=== PATIENT | male | born 1940 | race Caucasian/White ===

== ENCOUNTER → 2016-10-01 | Outpatient (CLI) | payer MEDICARE ==
[~2016-10-01] MED LIST: ATEN-60 PO; GABA300C PO; PRAS10TA PO; SUCR1TAB38 PO
[2016-10-01 16:28] LABS: Urine Bilirubin Negative (Negative); Urine Blood Negative /uL (Negative); Urine Color Yellow (Yellow); Urine Glucose Normal (Normal); Urine Ketone Negative (Negative); Urine Nitrite Negative (Negative); Urine Urobilinogen Normal (Negative); Urine pH 5.5 (5.0-8.0)
[2016-10-01 16:45] LABS: Basophils # (auto) 0 uL; Basophils % (auto) 0.4 % (0.0-2.0); Eosinophils # (auto) 0.1 uL; Hematocrit 49.2 % (41.0-53.0); Hemoglobin 16.1 g/dL (13.5-17.5); Lymphocytes # (auto) 0.8 uL; Lymphocytes % (auto) 21.3 % (10.0-50.0); Mean Corpuscular Hemoglobin 30.3 pg (28.0-32.0); Mean Corpuscular Hgb Conc. 32.7 g/dL (32.0-36.0); Mean Corpuscular Volume 92.7 fL (80.0-100.0); Mean Platelet Volume 8.1 fL (7.4-10.4); Monocytes # (auto) 0.4 uL; Monocytes % (auto) 9.8 % (0.0-12.0); Neutrophils # (auto) 2.4 uL; Neutrophils % (auto) 65.5 % (37.0-80.0); Platelet Count (auto) 218 10^3/uL (140-450); Red Cell Distribution Width 15.4 % (11.6-16.0); White Blood Cell 3.6 10^3/uL (4.4-10.8)
[2016-10-01 18:01] LABS: Albumin 3.8 g/dL (3.4-5.0); BUN/Creatinine Ratio 16.7; Bilirubin, Total 1.6 mg/dL (0.2-1.0); Potassium 4.7 mmol/L (3.5-5.1); Total Protein 6.8 g/dL (6.4-8.2)
[2016-10-01 18:50] LABS: Bilirubin, Direct 0.3 mg/dL (0-0.2)
== END | disposition home or self-care (01) ==
LOC: LAB 08:29
PROVIDERS: ATTEND Internal Medicine Cardiovascular Disease
DX: I10 Essential (primary) hypertension (principal); E78.00 Pure hypercholesterolemia, unspecified; K74.1 Hepatic sclerosis; E11.9 Type 2 diabetes mellitus without complications; R97.20 Elevated prostate specific antigen [PSA]; R53.81 Other malaise; E03.9 Hypothyroidism, unspecified; D64.9 Anemia, unspecified; E55.9 Vitamin D deficiency, unspecified; N39.0 Urinary tract infection, site not specified
CPT/HCPCS: 36415; 80048; 80061; 80076; 81003; 82306; 83036; 84403; 84443; 85025; 85049

== ENCOUNTER → 2018-02-17 | Outpatient (CLI) | payer MEDICARE ==
[2018-02-17 12:03] LABS: Urine Blood Negative /uL (Negative); Urine Specific Gravity 1.024 (1.001-1.035)
[2018-02-17 12:07] LABS: Basophils # (auto) 0 uL; Basophils % (auto) 0.4 % (0.0-2.0); Eosinophils # (auto) 0.1 uL; Eosinophils % (auto) 1.6 % (0.0-7.0); Hematocrit 43.9 % (41.0-53.0); Lymphocytes % (auto) 25.1 % (10.0-50.0); Mean Corpuscular Hemoglobin 31.5 pg (28.0-32.0); Mean Corpuscular Hgb Conc. 34.3 g/dL (32.0-36.0); Mean Corpuscular Volume 91.8 fL (80.0-100.0); Monocytes # (auto) 0.5 uL; Monocytes % (auto) 11.4 % (0.0-12.0); Neutrophils # (auto) 2.5 uL; Neutrophils % (auto) 61.5 % (37.0-80.0); Nucleated Red Blood Cells % 0.1 %; Platelet Count (auto) 204 10^3/uL (140-450); Red Blood Cells 4.78 10^6/uL (4.5-5.90); White Blood Cell 4.1 10^3/uL (4.4-10.8)
[2018-02-17 12:21] LABS: Albumin 3.8 g/dL (3.4-5.0); BUN/Creatinine Ratio 19.6; Bilirubin, Total 1.8 mg/dL (0.2-1.0); Calcium 9.6 mg/dL (8.5-10.1); Potassium 4.2 mmol/L (3.5-5.1)
[2018-02-17 12:28] LABS: Free T4 (Free Thyroxine) 1.21 ng/dL (0.89-1.76); Prostate Specific Antigen 1.03 ng/mL (0.0-4.0)
== END | disposition home or self-care (01) ==
LOC: LAB 08:28
PROVIDERS: ATTEND Internal Medicine
DX: Z00.01 Encounter for general adult medical examination with abnormal findings (principal); E03.9 Hypothyroidism, unspecified; E55.9 Vitamin D deficiency, unspecified; C61 Malignant neoplasm of prostate; E11.9 Type 2 diabetes mellitus without complications; D51.9 Vitamin B12 deficiency anemia, unspecified; N39.0 Urinary tract infection, site not specified
CPT/HCPCS: 36415; 80053; 80061; 81003; 82306; 82607; 83036; 84153; 84403; 84439; 84443; 85025

== ENCOUNTER → 2018-03-02 | Outpatient (CLI) | payer MEDICARE | END | disposition home or self-care (01) | LOC: Rad HDHVI 10:06 | PROVIDERS: ATTEND Internal Medicine Cardiovascular Disease | DX: I35.1 Nonrheumatic aortic (valve) insufficiency (principal); I25.10 Atherosclerotic heart disease of native coronary artery without angina pectoris; E78.5 Hyperlipidemia, unspecified; G62.9 Polyneuropathy, unspecified; E11.9 Type 2 diabetes mellitus without complications; E03.9 Hypothyroidism, unspecified; Z85.46 Personal history of malignant neoplasm of prostate | CPT/HCPCS: 93306 ==

== ENCOUNTER 2018-09-10 10:21 | Emergency (ER) | payer MEDICARE ==
[~2018-09-10] VITALS: Ht 177.8 cm; Wt 74.8 kg
[2018-09-10 10:41] VITALS: BP 109/69
[2018-09-10] MEDS: methylPREDNISolone SOD SUCC 125 MG/2 ML VL IM ONE (13:10)
[2018-09-10] MEDS: cefTRIAXone SOD 1,000 MG VL IM ONE (13:10)
== END 2018-09-10 13:43 | disposition home or self-care (01) ==
LOC: ER 10:26
CPT/HCPCS: 96372 ×2; 99283; J0696 ×2; J2930

== ENCOUNTER → 2018-11-03 | Outpatient (CLI) | payer MEDICARE ==
[~2018-11-03] MED LIST changes: +IOHEXOL 350 MG/ML 100ML IJ ONE
[2018-11-03 08:45] VITALS: BP_SYST 126; BP_DIAS 83; BP_DIAS 93
--- NOTE | 2018-11-03 08:45 | NUR ---
CHF PT TO CHF CLINIC FOR CT AND IV CONTRAST O DISTRESS V/S STABLE CREATINE DRAWN
--- NOTE | 2018-11-03 09:00 | NUR ---
IV insertion IV access obtained, via clean sterile technique by inserting 22 gauge catheter at after attempt(s). IV secured properly. No trauma to site. Patient tolerated procedure well.
[2018-11-03 09:29] VITALS: BP 134/78
--- NOTE | 2018-11-03 09:29 | NUR ---
IV removal IV DC'd with sterile technique, catheter fully intact. Pressure dressing applied to site. Patient tolerated procedure well. Discharged with aftercare instructions per MD. NOTE:
--- NOTE | 2018-11-03 09:30 | NUR ---
Discharge Instructions See e-MAR for any mediations given with this visit. Patient education given on disease process. Patient verbalized understanding. Previous labs reviewed. Patient discharged in stable condition with after care instructions and follow up appointment.
== END | disposition home or self-care (01) ==
LOC: Rad HDHVI 08:38
PROVIDERS: ATTEND Internal Medicine Cardiovascular Disease
DX: R10.9 Unspecified abdominal pain (principal); R07.89 Other chest pain; R94.4 Abnormal results of kidney function studies
CPT/HCPCS: 36415; 71260; 74177; 82565; Q9967

== ENCOUNTER → 2019-02-15 | Outpatient (CLI) | payer MEDICARE ==
[~2019-02-15] MED LIST changes: -IOHEXOL 350 MG/ML 100ML IJ ONE
== END | disposition home or self-care (01) ==
LOC: CHF HDHVI 14:58
PROVIDERS: ATTEND Internal Medicine Cardiovascular Disease
DX: I08.3 Combined rheumatic disorders of mitral, aortic and tricuspid valves (principal); I25.10 Atherosclerotic heart disease of native coronary artery without angina pectoris; Z95.820 Peripheral vascular angioplasty status with implants and grafts
CPT/HCPCS: 93306

== ENCOUNTER 2019-03-05 20:04 | Inpatient (IN) | payer MEDICARE ==
[~2019-03-05] VITALS: Ht 180.3 cm; Wt 97.3 kg
[2019-03-05 21:09] LABS: Hematocrit 24.8 % (41.0-53.0); Hemoglobin 7.7 g/dL (13.5-17.5); Mean Corpuscular Hemoglobin 25.7 pg (28.0-32.0); Mean Corpuscular Hgb Conc. 31.2 g/dL (32.0-36.0); Mean Corpuscular Volume 82.4 fL (80.0-100.0); Red Cell Distribution Width 15.8 % (11.8-14.3); White Blood Cell 24.2 10^3/uL (4.4-10.8)
[2019-03-05 21:19] LABS: Band Neutrophils % (manual) 0; Basophils % (manual) 0 (0.0-2.0); Blast Cells 0; Eosinophils % (manual) 0 (0-7); Metamyelocytes % 0; Myelocytes % 0; Promyelocytes % 0; Reactive Lymphocytes 0
[2019-03-05 21:44] LABS: Calcium 9.1 mg/dL (8.5-10.1); Potassium 4.5 mmol/L (3.5-5.1)
[2019-03-05 21:48] LABS: Bilirubin, Total 0.6 mg/dL (0.2-1.0); Total Protein 5.8 g/dL (6.4-8.2)
[2019-03-05 21:49] LABS: BUN/Creatinine Ratio 18.5
[2019-03-05 22:09] LABS: Lymphocytes % (manual) 3 (10.0-50.0); Monocytes % (manual) 7 (0-12); Platelet Count (auto) 460 10^3/uL (140-450)
[2019-03-05] MEDS ORDERED: VANCOMYCIN 1GM/250ML 250 ML IV ONE (22:30)
[2019-03-05] MEDS ORDERED: SODIUM CHLORIDE 0.9% 1,000 ML IV ONE (22:30)
[2019-03-05] MEDS ORDERED: PIPERACILLIN-TAZOB 3.375GM 100 ML IV ONE (22:30)
[2019-03-05 22:39] LABS: Lactic Acid w/Reflex 8.6 mmol/L (0.4-2.0)
[2019-03-06] VITALS (11 sets, daily range): BP systolic 93–126; BP diastolic 61–81
[2019-03-06 00:29] LABS: Lactic Acid w/Reflex 6.9 mmol/L (0.4-2.0)
[2019-03-06 02:22] LABS: Urine Bacteria NONE SEEN /hpf (None Seen); Urine Blood 1+ /uL (Negative); Urine Specific Gravity 1.016 (1.001-1.035); Urine WBC 2 /hpf (0 - 3)
[2019-03-06] MEDS ORDERED: ONDANSETRON HCL 4 MG/2 ML VIAL IV PRN (02:45)
[2019-03-06] MEDS ORDERED: VANCOMYCIN PER PHARMACY 0 MG IV SCH (02:45)
[2019-03-06] MEDS ORDERED: DOCUSATE SOD 100 MG CAP PO PRN (02:45)
[2019-03-06] MEDS ORDERED: ACETAMINOPHEN 500 MG TAB PO PRN (02:45)
[2019-03-06] MEDS ORDERED: TEMAZEPAM 15 MG CAP PO PRN (02:45)
--- NOTE | 2019-03-06 03:35 | NUR ---
Telemetry admit from ER B[facility]ANTOMI admitted to Telemetry unit. Patient oriented to Alex Aiken, primary RN, unit, room, bed, and unit policies regarding patient care and visiting hours. Patient now on continuous telemetry monitoring, tele box # [id number] and telemetry reading on arrival to unit is [facility]. Patient's vs taken and recorded, weighed by bedscale and encouraged to call if they need something, call light within reach. POC reviewed. All questions and concerns addressed, patient verbalized understanding. Side rails up x2, bed in lowest locked position, non skid socks/bed alarm on. Continue care. Note:
[2019-03-06] MEDS: cefTRIAXone 1GM/50ML D5W 50 ML IV SCH (04:12)
[2019-03-06] MEDS ORDERED: MED20T PO (05:03)
[2019-03-06] MEDS ORDERED: TAM04C PO (05:03)
[2019-03-06] MEDS ORDERED: ATOR20TA PO (05:03)
[2019-03-06] MEDS: SUCRALFATE 1 GM TAB PO SCH ×4 (06:05→21:47)
--- NOTE | 2019-03-06 07:40 | NUR ---
OPENING SHIFT NOTE PATIENT IN BED AWAKE AND ALERT, AND ABLE TO FOLLOW COMMANDS. SHOWING NO S/.S OF DISTRESS OR SOB. PATIENT VERBALIZED UNDERSTANDING DAYS POC. BED IS IN LOWEST LOCKED POSITION CALL LIGHT WITHIN REACH. WILL CONTINUE TO MONITOR
[2019-03-06] MEDS: PANTOPRAZOLE 40 MG TAB PO SCH (08:56)
[2019-03-06] MEDS: GABAPENTIN 300 MG CAP PO SCH ×2 (08:56→21:47)
[2019-03-06] MEDS: ATENOLOL 25 MG TAB PO SCH (08:57)
[2019-03-06 09:25] LABS: Basophils # (auto) 0 uL; Eosinophils # (auto) 0 uL; Lymphocytes # (auto) 1.8 uL; Lymphocytes % (auto) 11.7 % (10.0-50.0); White Blood Cell 15.7 10^3/uL (4.4-10.8)
[2019-03-06 09:30] LABS: Basophils % (auto) 0.2 % (0.0-2.0); Hematocrit 19.6 % (41.0-53.0); Mean Corpuscular Hgb Conc. 32.5 g/dL (32.0-36.0); Monocytes # (auto) 1.4 uL; Monocytes % (auto) 9.2 % (0.0-12.0); Neutrophils # (auto) 12.4 uL; Neutrophils % (auto) 78.9 % (37.0-80.0); Platelet Count (auto) 429 10^3/uL (140-450); Red Blood Cells 2.45 10^6/uL (4.5-5.90); Red Cell Distribution Width 15.7 % (11.8-14.3)
[2019-03-06 09:36] LABS: Hemoglobin 6.4 g/dL (13.5-17.5)
[2019-03-06 09:43] LABS: BUN/Creatinine Ratio 25.8; Calcium 8.4 mg/dL (8.5-10.1); Potassium 4.1 mmol/L (3.5-5.1)
--- NOTE | 2019-03-06 10:26 | NUR ---
CRITICAL LAB VALUE REPORTED BY [facility], DR MCKINNEY MADE AWARE. GAVE ORDERS FOR 1 UNIT RBC. PATIENT REFUSES TO SIGN CONSENT AT THIS TIME. PATIENT EDUCATED ON RISKS AND BENEFITS. WILL CONTINUE TO MONITOR
--- NOTE | 2019-03-06 11:00 | NUR ---
PATIENT SIGNED CONSENT PATIENTS FAMILY AT BEDSIDE. AND SIGNED CONSENT TO RECEIVE BLOOD TRANSFUSION
--- NOTE | 2019-03-06 11:56 | NUR ---
MD AT BEDSIDE PATIENT AWAKE AND ALERT X4 FAMILY AT BEDSIDE. DR MCKINNEY DISCUSSED POC. WILL CARRY OUT ORDERS DIRECTED
--- NOTE | 2019-03-06 13:40 | NUR ---
BLOOD TRANSFUSION STARTED PATIENT IN BED ALERT AND ORIENTED, BASE LINE VITALS SIGNS TAKEN. PATIENT DENIES PAIN SOB OR ANY DISTRESS. WILL CONTINUE TO MONITOR
--- NOTE | 2019-03-06 15:56 | NUR ---
AT BEDSIDE DR IZQUIERDO AT BEDSIDE, PATIENT ALERT AND ORIENTED. TIMBO REQUESTED PATIENTS CARE BE TRANSFERRED OVER TO HIM AND FOR CBC PANEL TO BE COMPLETED AFTER COMPLETION OF TRANSFUSION. WILL CARRY OUT ORDERS
--- NOTE | 2019-03-06 16:25 | NUR ---
TRANSFUSION COMPLETE TRANSFUSION COMPLETED. PATIENT TOLERATED WELL. DENIES PAIN, SOB AND ANY DISTRESS. LUNG SOUNDS CLEAR. PATIENT VERBALIZED FEELING MORE AWAKE. VITAL SIGNS ARE WNL. WILL CONTINUE TO MONITOR
[2019-03-06] MEDS: TAMSULOSIN HYDROCHLORIDE 0.4 MG CAP PO SCH (17:28)
[2019-03-06 17:38] LABS: Basophils # (auto) 0 uL; Basophils % (auto) 0.1 % (0.0-2.0); Eosinophils # (auto) 0 uL; Hematocrit 23.9 % (41.0-53.0); Hemoglobin 7.5 g/dL (13.5-17.5); Lymphocytes # (auto) 2.2 uL; Lymphocytes % (auto) 14.1 % (10.0-50.0); Mean Corpuscular Hemoglobin 25.9 pg (28.0-32.0); Mean Corpuscular Hgb Conc. 31.5 g/dL (32.0-36.0); Mean Corpuscular Volume 82.3 fL (80.0-100.0); Monocytes # (auto) 1.5 uL; Monocytes % (auto) 9.7 % (0.0-12.0); Neutrophils % (auto) 76.1 % (37.0-80.0); Nucleated Red Blood Cells % 0.1 %; Platelet Count (auto) 416 10^3/uL (140-450); Red Cell Distribution Width 15.8 % (11.8-14.3); White Blood Cell 15.8 10^3/uL (4.4-10.8)
--- NOTE | 2019-03-06 17:39 | NUR ---
STOOL OCCULT BLOOD SAMPLE SENT
--- NOTE | 2019-03-06 18:50 | NUR ---
END OF SHIFT NOTE PATIENT IS IN BED WITH EYES CLOSED COMFORTABLY. SHOWING NO S/S OF DISTRESS. BED IS IN LOWEST LOCKED POSITION CALL LIGHT WITH IN REACH WILL ENDORSE CARE TO NOC RN
--- NOTE | 2019-03-06 19:10 | NUR ---
Opening Shift Note Received report from Siobhan LARSON. Assumed care of patient, awake and alert. No S/S of distress/SOB or pain. Instructed on POC and to call for assist PRN. Bed in lowest position, side rails up x2, bed alarm on, call light and belongings in reach. Will continue to monitor for changes Q1hr and PRN.
[2019-03-06] MEDS: ATORVASTATIN 20 MG TAB PO SCH (21:47)
[2019-03-06] MEDS: VANCOMYCIN 1,250 MG in D5W 5% 250 ML IV SCH (21:48)
[2019-03-07] VITALS (11 sets, daily range): BP systolic 102–123; BP diastolic 51–79
[2019-03-07] MEDS: cefTRIAXone 1GM/50ML D5W 50 ML IV SCH (04:28)
[2019-03-07 05:55] LABS: BUN/Creatinine Ratio 34.9; Calcium 8.2 mg/dL (8.5-10.1); Potassium 3.9 mmol/L (3.5-5.1)
[2019-03-07 06:32] LABS: Basophils # (auto) 0 uL; Basophils % (auto) 0.1 % (0.0-2.0); Eosinophils # (auto) 0 uL; Nucleated Red Blood Cells % 0.2 %; Red Cell Distribution Width 15.5 % (11.8-14.3)
[2019-03-07 06:35] LABS: Eosinophils % (auto) 0.2 % (0.0-7.0); Hematocrit 19.8 % (41.0-53.0); Lymphocytes # (auto) 1.6 uL; Lymphocytes % (auto) 13.7 % (10.0-50.0); Mean Corpuscular Hgb Conc. 33.6 g/dL (32.0-36.0); Mean Corpuscular Volume 80.2 fL (80.0-100.0); Monocytes # (auto) 1.5 uL; Monocytes % (auto) 12.5 % (0.0-12.0); Neutrophils # (auto) 8.6 uL; Neutrophils % (auto) 73.5 % (37.0-80.0); Platelet Count (auto) 369 10^3/uL (140-450); Red Blood Cells 2.46 10^6/uL (4.5-5.90); White Blood Cell 11.7 10^3/uL (4.4-10.8)
[2019-03-07 06:48] LABS: Hemoglobin 6.6 g/dL (13.5-17.5)
[2019-03-07] MEDS: SUCRALFATE 1 GM TAB PO SCH ×4 (06:49→22:10)
--- NOTE | 2019-03-07 07:03 | NUR ---
Received call from Violeta in laboratory re: critical Hgb level of 6.6. Dr. Dunn made aware, awaiting for call back. Patient stable at this time, vitals within normal. Endorsed care to Siobhan LARSON.
--- NOTE | 2019-03-07 07:30 | NUR ---
OPENING SHIFT NOTE PATIENT IN BED AWAKE WATCHING TV AT THIS TIME. DENIES PAIN SOB AND ANY DISTRESS. PATIENT VERBALIZED UNDERSTANDING OF DAYS POC. BED IS IN LOWEST LOCKED POSITION CALL LIGHT IS WITH IN REACH. WILL CONTINUE TO MONITOR
[2019-03-07] MEDS: GABAPENTIN 300 MG CAP PO SCH ×2 (09:27→22:10)
[2019-03-07] MEDS: ATENOLOL 25 MG TAB PO SCH (09:28)
[2019-03-07] MEDS: PANTOPRAZOLE 40 MG TAB PO SCH ×2 (09:28→22:10)
[2019-03-07 12:46] LABS: INR 1.16 (0.9-1.15)
--- NOTE | 2019-03-07 13:20 | NUR ---
IV removal AND IV INSERTION IV DC'd with clean sterile technique, catheter fully intact. Pressure dressing applied to site. Patient tolerated well. IV INSERTED TO LEFT HAND 20 G AFTER ONE ATTEMPT. PATIENT TOLERATED WELL. WILL CONTINUE TO MONITOR
--- NOTE | 2019-03-07 14:24 | NUR ---
Spoke with pt's nurse regarding appropriateness for therapy. Pt's Hgb 6.6, will hold therapy today and re-check tomorrow. Addendum: 03/07/19 at 1425 by JAKY NIÑO PT PT Amended: Links added.
--- NOTE | 2019-03-07 14:27 | NUR ---
BLOOD TRANSFUSION BEGUN PATIENT IN BED ALERT AND ORIENTED. BASE LINE VITALS ARE STABLE. DENIES PAIN, SOB OR ANY DISTRESS. WILL CONTINUE TO MONITOR
[2019-03-07] MEDS: TAMSULOSIN HYDROCHLORIDE 0.4 MG CAP PO SCH (17:55)
--- NOTE | 2019-03-07 17:57 | NUR ---
TRANSFUSION COMPLETE TRANSFUSION COMPLETE, PATIENT ALERT AND ORIENTED, DENIES PAIN SOB OR DISTRESS. VITAL SIGNS STABLE. WILL CONTINUE TO MONITOR
--- NOTE | 2019-03-07 19:06 | NUR ---
END OF SHIFT NOTE PATIENT IN BED WITH EYES CLOSED COMFORTABLY. BED IS IN LOWEST LOCKED POSITION CALL LIGHT WITHIN REACH. ENDORSED CARE TO NOC RN
--- NOTE | 2019-03-07 19:15 | NUR ---
Opening Shift Note Received report from Siobhan LARSON. Assumed care of patient, awake and alert. No S/S of distress/SOB or pain. Instructed on POC and to call for assist PRN. Fall precaution measures in place, will continue to monitor for changes Q1hr and PRN.
[2019-03-07 19:31] LABS: Basophils # (auto) 0 uL; Eosinophils # (auto) 0 uL; Hematocrit 23.9 % (41.0-53.0); Hemoglobin 7.7 g/dL (13.5-17.5); Mean Corpuscular Hgb Conc. 32.3 g/dL (32.0-36.0); Monocytes # (auto) 1.8 uL; White Blood Cell 11.4 10^3/uL (4.4-10.8)
[2019-03-07 19:33] LABS: Basophils % (auto) 0.2 % (0.0-2.0); Eosinophils % (auto) 0.1 % (0.0-7.0); Lymphocytes # (auto) 1.6 uL; Lymphocytes % (auto) 13.6 % (10.0-50.0); Mean Corpuscular Hemoglobin 26.3 pg (28.0-32.0); Mean Corpuscular Volume 81.5 fL (80.0-100.0); Monocytes % (auto) 15.6 % (0.0-12.0); Neutrophils % (auto) 70.5 % (37.0-80.0); Nucleated Red Blood Cells % 0.5 %; Platelet Count (auto) 373 10^3/uL (140-450); Red Blood Cells 2.93 10^6/uL (4.5-5.90)
[2019-03-07] MEDS: ATORVASTATIN 20 MG TAB PO SCH (22:09)
[2019-03-07] MEDS: VANCOMYCIN 1,250 MG in D5W 5% 250 ML IV SCH (22:10)
[2019-03-08] VITALS (10 sets, daily range): BP systolic 106–136; BP diastolic 66–83
--- NOTE | 2019-03-08 03:21 | NUR ---
Hematocrit level is 23.9, 3rd unit of PRBC started per MD order. Vitals within normal, will continue to monitor.
--- NOTE | 2019-03-08 06:31 | NUR ---
Blood transfusion ended, no reaction noted, vitals stable. Continue monitor.
[2019-03-08] MEDS: SUCRALFATE 1 GM TAB PO SCH ×4 (06:40→21:55)
[2019-03-08] MEDS: cefTRIAXone 1GM/50ML D5W 50 ML IV SCH (06:40)
--- NOTE | 2019-03-08 07:35 | NUR ---
Care endorsed to Sugey LARSON.
--- NOTE | 2019-03-08 07:56 | NUR ---
RECEIVED REPORT AND ASSUME CARE OF PT. A/OX4. DENIED S/S ACUTE DISTRESS. UPDATE PT WITH POC. BED AT LOWEST POSITION. CALL LIGHT AND BELONGINGS WITHIN REACH. WILL CONT TO MONITOR.
[2019-03-08] MEDS ORDERED: LIDOCAINE VISCOUS 2% 15ML UD ONE (08:49)
[2019-03-08] MEDS ORDERED: SODIUM CHLORIDE LOCK 10 ML ONE (08:49)
[2019-03-08] MEDS ORDERED: diphenhdrAMINE HCL 50 MG/1 ML VL ONE (08:50)
--- NOTE | 2019-03-08 11:00 | NUR ---
PT DECLINED P.T. TODAY.
[2019-03-08] MEDS: SODIUM FERR GLUC 62.5MG/5ML 125 MG in SODIUM CHL 0.9% 100 ML IV SCH ×2 (11:09→12:00)
[2019-03-08] MEDS: MIDAZOLAM HCL 5 MG/ML-1ML VIAL ONE ×2 (12:08→12:11)
[2019-03-08] MEDS: fentaNYL CITRATE 100 MCG/2 ML VL ONE ×2 (12:08→12:11)
[2019-03-08] MEDS: PANTOPRAZOLE 40 MG TAB PO SCH ×2 (12:57→21:56)
[2019-03-08] MEDS: GABAPENTIN 300 MG CAP PO SCH ×2 (12:57→21:55)
[2019-03-08] MEDS: ATENOLOL 25 MG TAB PO SCH (12:58)
--- NOTE | 2019-03-08 13:47 | NUR ---
meds given late as pt was npo and off unit for EGD.
[2019-03-08 14:17] LABS: % Iron Saturation 20.5 % (20-55)
[2019-03-08 14:26] LABS: Folate (Folic Acid) 23.15 ng/mL (5.38-24)
[2019-03-08 14:27] LABS: INR 1.24 (0.9-1.15); Partial Thromboplastin Time 31.7 sec (23.64-32.05)
[2019-03-08 14:42] LABS: Basophils # (auto) 0 uL; Basophils % (auto) 0.1 % (0.0-2.0); Eosinophils # (auto) 0 uL; Hematocrit 28.8 % (41.0-53.0); Hemoglobin 9.5 g/dL (13.5-17.5); Lymphocytes # (auto) 0.7 uL; Lymphocytes % (auto) 5.5 % (10.0-50.0); Mean Corpuscular Hemoglobin 27.4 pg (28.0-32.0); Mean Corpuscular Hgb Conc. 32.9 g/dL (32.0-36.0); Mean Corpuscular Volume 83.3 fL (80.0-100.0); Monocytes # (auto) 1.4 uL; Monocytes % (auto) 10.7 % (0.0-12.0); Neutrophils # (auto) 11.2 uL; Neutrophils % (auto) 83.7 % (37.0-80.0); Nucleated Red Blood Cells % 1.3 %; Platelet Count (auto) 396 10^3/uL (140-450); Red Blood Cells 3.45 10^6/uL (4.5-5.90); Red Cell Distribution Width 15.5 % (11.8-14.3); White Blood Cell 13.4 10^3/uL (4.4-10.8)
[2019-03-08] MEDS: TAMSULOSIN HYDROCHLORIDE 0.4 MG CAP PO SCH (18:37)
--- NOTE | 2019-03-08 19:15 | NUR ---
Opening Shift Note Received report from Didian RN. Assumed care of patient, awake and alert. No S/S of distress/SOB or pain. Instructed on POC and to call for assist PRN. Fall precaution measures in place, will continue to monitor for changes Q1hr and PRN.
[2019-03-08] MEDS: ATORVASTATIN 20 MG TAB PO SCH (21:55)
[2019-03-08] MEDS: VANCOMYCIN 1,250 MG in D5W 5% 250 ML IV SCH (21:56)
[2019-03-09] MEDS: cefTRIAXone 1GM/50ML D5W 50 ML IV SCH (04:09)
[2019-03-09 05:05] VITALS: BP 131/75
[2019-03-09 05:51] LABS: Basophils # (auto) 0 uL; Basophils % (auto) 0.2 % (0.0-2.0); Eosinophils # (auto) 0 uL; Hematocrit 31.1 % (41.0-53.0); Hemoglobin 10.1 g/dL (13.5-17.5); Lymphocytes # (auto) 1.1 uL; Mean Corpuscular Hemoglobin 27.1 pg (28.0-32.0); Mean Corpuscular Hgb Conc. 32.6 g/dL (32.0-36.0); Monocytes # (auto) 1.7 uL; Monocytes % (auto) 12.3 % (0.0-12.0); Neutrophils # (auto) 10.7 uL; Neutrophils % (auto) 79.5 % (37.0-80.0); Nucleated Red Blood Cells % 2.8 %; Platelet Count (auto) 416 10^3/uL (140-450); Red Blood Cells 3.75 10^6/uL (4.5-5.90); Red Cell Distribution Width 15.6 % (11.8-14.3); White Blood Cell 13.5 10^3/uL (4.4-10.8)
[2019-03-09 06:22] LABS: BUN/Creatinine Ratio 25.6; Calcium 8.7 mg/dL (8.5-10.1); Potassium 3.6 mmol/L (3.5-5.1)
[2019-03-09] MEDS: SUCRALFATE 1 GM TAB PO SCH ×4 (06:49→22:10)
[2019-03-09 08:36] VITALS: BP 137/82
[2019-03-09] MEDS: GABAPENTIN 300 MG CAP PO SCH ×2 (09:22→22:10)
[2019-03-09] MEDS: PANTOPRAZOLE 40 MG TAB PO SCH ×2 (09:23→22:10)
[2019-03-09] MEDS: ATENOLOL 25 MG TAB PO SCH (09:23)
[2019-03-09] MEDS: VANCOMYCIN 1GM/250ML 250 ML IV SCH ×2 (09:24→22:09)
--- NOTE | 2019-03-09 11:00 | NUR ---
PT DECLINED OUT OF BED BECAUSE OF DIZZINESS.
[2019-03-09] MEDS: SODIUM FERR GLUC 62.5MG/5ML 125 MG in SODIUM CHL 0.9% 100 ML IV SCH (12:02)
[2019-03-09 13:00] VITALS: BP 128/80
--- NOTE | 2019-03-09 14:51 | NUR ---
NUTRITION ASSESSMENT NOTES Please refer to link notes of nutrition screen form filed under the intervention section of the plan of care for further details. Est. Needs: 1850 kcal to 2200 kcal (25-30 kcal/kgBW), 74 gms to 89 gms pro (1.0-1.2 gms/kgBW). Will continue to monitor pertinent labs and reassess nutrient need prn Thank you. Addendum: 03/09/19 at [address] Amended: Links added.
[2019-03-09 16:36] VITALS: BP 115/75
[2019-03-09] MEDS: TAMSULOSIN HYDROCHLORIDE 0.4 MG CAP PO SCH (17:55)
--- NOTE | 2019-03-09 19:10 | NUR ---
OPEN SHIFT NOTE PATIENT ALERT AND ORIENTED, REQUESTING TO TAKE BIPAP OFF. BIPAP OFF, PATIENT IS SATING AT 98 %. LEFT IJ IS INTACT AND PATENT. POC DISCUSSED AND QUESTIONS ANSWERED, BED IS LOCKED IN LOWEST POSITION WITH SIDE RAILS UP X2 FOR SAFETY. CALL LIGHT IS WITHIN REACH AND ENCOURAGED TO CALL IF NEEDS ANYTHING. WILL CONTINUE TO ROUND Q1HR AND PRN.
--- NOTE | 2019-03-09 19:50 | NUR ---
PT RESTING IN BED. NO S/S ACUTE DISTRESS NOTED. ENDORSED CARE TO NIGHT NURSE.
[2019-03-09 20:10] VITALS: BP 122/80
[2019-03-09 22:00] VITALS: BP 122/80
[2019-03-09] MEDS: ATORVASTATIN 20 MG TAB PO SCH (22:10)
[2019-03-10] VITALS (7 sets, daily range): BP systolic 110–122; BP diastolic 74–84
[2019-03-10] MEDS: cefTRIAXone 1GM/50ML D5W 50 ML IV SCH (04:37)
[2019-03-10 06:17] LABS: Hematocrit 36.7 % (41.0-53.0); Hemoglobin 11.8 g/dL (13.5-17.5); Mean Corpuscular Hemoglobin 26.9 pg (28.0-32.0); Mean Corpuscular Hgb Conc. 32.2 g/dL (32.0-36.0); Mean Corpuscular Volume 83.8 fL (80.0-100.0); Platelet Count (auto) 516 10^3/uL (140-450); Red Blood Cells 4.39 10^6/uL (4.5-5.90); Red Cell Distribution Width 16.4 % (11.8-14.3); White Blood Cell 22.8 10^3/uL (4.4-10.8)
[2019-03-10 06:24] LABS: Anion Gap 10 (5-15); BUN/Creatinine Ratio 29.5; Blood Urea Nitrogen 23 mg/dL (7-18); Calcium 8.5 mg/dL (8.5-10.1); Carbon Dioxide 20 mmol/L (21-32); Chloride 106 mmol/L (98-107); GFR African American 124 mL/min; GFR Non-African American 103 mL/min; Glucose 121 mg/dL (74-106); Potassium 3.7 mmol/L (3.5-5.1); Sodium 136 mmol/L (136-145)
[2019-03-10] MEDS: SUCRALFATE 1 GM TAB PO SCH ×4 (06:25→21:52)
[2019-03-10 06:27] LABS: Basophils % (manual) 0 (0.0-2.0); Blast Cells 0; Eosinophils % (manual) 0 (0-7); Metamyelocytes % 0; Myelocytes % 0; Promyelocytes % 0; Reactive Lymphocytes 0
[2019-03-10 07:12] LABS: Band Neutrophils % (manual) 2; Lymphocytes % (manual) 2 (10.0-50.0); Monocytes % (manual) 5 (0-12)
--- NOTE | 2019-03-10 07:35 | NUR ---
Opening Shift Note Assumed care of patient, awake and alert. No S/S of distress OR SOB. Pt denies any pain at this time. Bed in lowest and locked position with side rails up x2. Instructed on POC and to call for assist PRN, will continue to monitor for changes Q1hr and PRN.
--- NOTE | 2019-03-10 08:10 | NUR ---
DR. FLANNERY AT BEDSIDE DISCUSSING POC WITH PT.
[2019-03-10] MEDS: PANTOPRAZOLE 40 MG TAB PO SCH ×2 (09:44→21:53)
[2019-03-10] MEDS: GABAPENTIN 300 MG CAP PO SCH ×2 (09:44→21:53)
[2019-03-10] MEDS: VANCOMYCIN 1GM/250ML 250 ML IV SCH ×2 (09:44→21:52)
[2019-03-10] MEDS: ATENOLOL 25 MG TAB PO SCH (09:46)
--- NOTE | 2019-03-10 11:30 | NUR ---
DR. Jose MCKINNEY AT BEDSIDE DISCUSSING POC WITH PT AND PT .
--- NOTE | 2019-03-10 11:35 | NUR ---
DR. Jose MCKINNEY VERBALIZED CONCERNS ON PT WBC INCREASING AND WANTS TO CONTINUE VANCOMYCIN AND ROCEPHIN.
--- NOTE | 2019-03-10 12:06 | NUR ---
PT AT BEDSIDE ASSISTING PATIENT.
[2019-03-10] MEDS: SODIUM FERR GLUC 62.5MG/5ML 125 MG in SODIUM CHL 0.9% 100 ML IV SCH (13:05)
[2019-03-10] MEDS: TAMSULOSIN HYDROCHLORIDE 0.4 MG CAP PO SCH (18:04)
--- NOTE | 2019-03-10 19:39 | NUR ---
OPENING NOTES RECEIVED REPORT FROM DAY SHIFT NURSE. PT IS ALERT AND ORIENTATED X 4 WITH NO S/S OF DISTRESS NOR PAIN. NO S/S OF SOB. GARCIA CATHETER IS SECURED, PATIENT, DRAINING, AND BELOW BLADDER. BED IS IN LOWEST POSITION WITH SIDE RAILS UP X 2. BED BRAKES ARE LOCKED AND CALL LIGHT IS WITH IN REACH. HOB IS 30 DEGREES. DISCUSSED POC WITH PT, AND PT VERBALIZED UNDERSTANDING.
[2019-03-10] MEDS: ATORVASTATIN 20 MG TAB PO SCH (21:53)
[2019-03-11] VITALS (13 sets, daily range): BP systolic 84–119; BP diastolic 59–80
[2019-03-11] MEDS: cefTRIAXone 1GM/50ML D5W 50 ML IV SCH (04:16)
[2019-03-11 06:03] LABS: Basophils # (auto) 0 uL; Eosinophils # (auto) 0 uL; Hemoglobin 11.4 g/dL (13.5-17.5); Lymphocytes # (auto) 0.8 uL
[2019-03-11 06:05] LABS: Basophils % (auto) 0.2 % (0.0-2.0); Hematocrit 35.3 % (41.0-53.0); Lymphocytes % (auto) 3.4 % (10.0-50.0); Mean Corpuscular Hemoglobin 26.5 pg (28.0-32.0); Mean Corpuscular Hgb Conc. 32.2 g/dL (32.0-36.0); Mean Corpuscular Volume 82.1 fL (80.0-100.0); Monocytes # (auto) 2.1 uL; Neutrophils # (auto) 20.9 uL; Neutrophils % (auto) 87.4 % (37.0-80.0); Nucleated Red Blood Cells % 2.8 %; Red Cell Distribution Width 16.1 % (11.8-14.3); White Blood Cell 23.9 10^3/uL (4.4-10.8)
[2019-03-11 06:27] LABS: Platelet Count (auto) 552 10^3/uL (140-450)
--- NOTE | 2019-03-11 07:20 | NUR ---
closing notes ENDORSED CARE TO DAY SHIFT NURSEMAXI.
--- NOTE | 2019-03-11 07:50 | NUR ---
Opening Shift Note Assumed care of patient, awake and alert. No S/S of distress OR SOB. Pt denies any pain at this time. Flores Catheter intact, patent and draining. Bed in lowest and locked position with side rails up x2. Instructed on POC and to call for assist PRN, will continue to monitor for changes Q1hr and PRN.
[2019-03-11] MEDS: SUCRALFATE 1 GM TAB PO SCH ×4 (08:55→23:19)
[2019-03-11] MEDS: GABAPENTIN 300 MG CAP PO SCH ×2 (10:06→23:20)
[2019-03-11] MEDS: PANTOPRAZOLE 40 MG TAB PO SCH ×2 (10:08→23:20)
[2019-03-11] MEDS: ATENOLOL 25 MG TAB PO SCH (10:09)
--- NOTE | 2019-03-11 10:25 | NUR ---
PT SITTING IN CHAIR AT BEDSIDE AND ASKED TO BE MOVED BACK TO BED. WITH ASSISTANCE PT WAS MOVED BACK TO THE BED. THE PT FELT WEAK AND HOT AND SWEATING AFTER SITTING IN THE BED. PT B/P WAS 84/60 HEART RATE 105. O2 AND TEMPERATURE WERE UNATTAINABLE. WILL MONITOR CLOSELY AND NOTIFY .
--- NOTE | 2019-03-11 10:28 | NUR ---
DR. IZQUIERDO NOTIFIED ON PATIENT CONDITION. ORDERS RECEIVED, READ BACK AND VERIFIED.
[2019-03-11] MEDS ORDERED: SODIUM CHLORIDE 0.9% 1,000 ML IV ONE ×2 (10:45→17:15)
--- NOTE | 2019-03-11 10:50 | NUR ---
NS FLUID BOLUS STARTED.
--- NOTE | 2019-03-11 11:50 | NUR ---
FLUID BOLUS INFUSED. PT STATES HE "FEELS THE SAME". PT DIAPHORETIC AND DIZZY. BLOOD PRESSURE 88/62, HR 107, 92% O2 AND TEMPERATURE 97.7F. WILL RECHECK BP AND NOTIFY
[2019-03-11 11:51] LABS: Albumin 2.5 g/dL (3.4-5.0); Calcium 9.3 mg/dL (8.5-10.1); Potassium 3.5 mmol/L (3.5-5.1)
[2019-03-11 11:55] LABS: BUN/Creatinine Ratio 34.7; Bilirubin, Total 2.4 mg/dL (0.2-1.0); Total Protein 5.8 g/dL (6.4-8.2)
--- NOTE | 2019-03-11 12:05 | NUR ---
BP RECHECKED AT 95/63 AND HR 104. WILL NOTIFY MD ON PT STATUS.
--- NOTE | 2019-03-11 12:30 | NUR ---
DR. IZQUIERDO NOTIFIED ABOUT PATIENT STATUS. AWAITING CALL BACK.
[2019-03-11] MEDS: VANCOMYCIN 1GM/250ML 250 ML IV SCH ×2 (13:34→23:19)
--- NOTE | 2019-03-11 13:37 | NUR ---
NOTIFIED LAB ON LATE ADMINISTRATION ON VANCOMYCIN.
--- NOTE | 2019-03-11 15:00 | NUR ---
RECHECKED PT B/P 101/66 AND HR 107.
[2019-03-11] MEDS ORDERED: PATIENTS OWN MEDICATION (MEROPENEM 1 G) IV SCH (15:15)
[2019-03-11] MEDS ORDERED: TPN PER PHARMACY 0 ML IV SCH (15:15)
[2019-03-11] MEDS ORDERED: FLUCONAZOLE 200MG/100ML 100 ML IV SCH (15:30)
[2019-03-11 16:15] LABS: Magnesium 2.2 mg/dL (1.6-2.6); Phosphorus 3.2 mg/dL (2.5-4.90)
--- NOTE | 2019-03-11 16:21 | NUR ---
NOTIFIED DR. IZQUIERDO ABOUT PATIENTS BP OF 89/[address] CONTRERAS.
--- NOTE | 2019-03-11 16:54 | NUR ---
CALL BACK RECEIVED FROM DR. IZQUIERDO. ORDERS RECEIVED, READ BACK AND VERIFIED.
--- NOTE | 2019-03-11 17:20 | NUR ---
FLUID BOLUS STARTED PER DR ORDERS.
--- NOTE | 2019-03-11 17:26 | NUR ---
PATIENT HAS ANTIBIOTICS AND DOPAMINE DRIP DUE. PATIENT HAS ONLY ONE IV. B/P 112/75, WILL ADMINISTER ANTIBIOTICS AND ATTEMPT TO OBTAIN A SECOND IV LINE.
[2019-03-11] MEDS: TAMSULOSIN HYDROCHLORIDE 0.4 MG CAP PO SCH (17:28)
--- NOTE | 2019-03-11 18:00 | NUR ---
ATTEMPT IV ACCESS. FAILED TO OBTAIN A SECOND LINE.
--- NOTE | 2019-03-11 18:20 | NUR ---
FLUID BOLUS INFUSED. PT STABLE AND ALERT. BP 112/75.
[2019-03-11] MEDS: MEROPENEM 1GM IVPB 100 ML IV SCH (18:46)
--- NOTE | 2019-03-11 19:00 | NUR ---
ENDORSED CARE TO WHITE METAL CORROSION PROOFER RN. RN AWARE THAT THE PATIENT HAS ONLY ONE IV WITH A STABLE B/P. RN WILL FOLLOW UP WITH MEDICATIONS TO BE ADMINISTERED.
--- NOTE | 2019-03-11 19:31 | NUR ---
OPENING NOTES RECEIVED REPORT FROM DAY SHIFT NURSE MAXI. PT IS AWAKE AND ORIENTATED X 4 WITH NO S/S OF DISTRESS NOR PAIN. NO S/S OF SOB. GARCIA CATHETER IS SECURED, PATENT, DRAINING AND BELOW BLADDER. BED BRAKES ARE LOCKED AND BED IS IN LOWEST POSITION. CALL LIGHT IS WITH IN REACH AND SIDE RAILS ARE UP X 4. HOB IS 30 DEGREES AND BED ALARM IS ARMED. WILL MONITOR PT Q 1 HR.
[2019-03-11] MEDS ORDERED: CLINIMIX PER PHARMACY IV NR ×6 (20:00)
[2019-03-11] MEDS ORDERED: DEXTROSE (50%) 50ML SYRG IV SCH (20:00)
[2019-03-11] MEDS: ACCU-CHEK COMFORT CURVE STRIP VI SCH ×2 (20:00→23:56)
--- NOTE | 2019-03-11 20:38 | NUR ---
IV INSERTION FAILED TO OBTAIN IV ACCESS FOR NEW IV MEDICATION.
--- NOTE | 2019-03-11 21:31 | NUR ---
IV insertion IV access obtained, via clean sterile technique by inserting 22 gauge catheter at left wrist after 1 attempt. IV secured properly. No trauma to site. Patient tolerated well. Addendum: 03/12/19 at 0039 by JUSTINO WILLAMS RN RN by MARSHA Cheek
--- NOTE | 2019-03-11 22:17 | NUR ---
IV MEDICATIONS IV MEDICATIONS GIVEN LATE DUE TO LACK OF IV ACCESS.
[2019-03-11] MEDS: DOPamine 1600MCG/ML D5W 250 ML IV SCH (22:30)
--- NOTE | 2019-03-11 22:31 | NUR ---
IV insertion IV access obtained, via clean sterile technique by inserting 22 gauge catheter at right wrist after 1 attempt by Caitlyn LARSON. IV secured properly. No trauma to site. Patient tolerated well.
[2019-03-11] MEDS: InsuLIN REG 1unit/0.01ml Soln (100units/ml) SC SCH (22:59)
[2019-03-11] MEDS: ATORVASTATIN 20 MG TAB PO SCH (23:19)
[2019-03-12] MEDS: InsuLIN REG 1unit/0.01ml Soln (100units/ml) SC SCH ×4 (00:02→19:00)
[2019-03-12] MEDS: MEROPENEM 1GM IVPB 100 ML IV SCH ×3 (01:23→17:22)
[2019-03-12 05:36] VITALS: BP 110/60
[2019-03-12 05:39] LABS: Hemoglobin 11.4 g/dL (13.5-17.5); Red Blood Cells 4.22 10^6/uL (4.5-5.90)
[2019-03-12 05:41] LABS: Hematocrit 35.2 % (41.0-53.0); Mean Corpuscular Hgb Conc. 32.4 g/dL (32.0-36.0); Mean Corpuscular Volume 83.3 fL (80.0-100.0); Red Cell Distribution Width 16.5 % (11.8-14.3); White Blood Cell 23.4 10^3/uL (4.4-10.8)
[2019-03-12 05:53] LABS: Basophils % (manual) 0 (0.0-2.0); Blast Cells 0; Eosinophils % (manual) 0 (0-7); Metamyelocytes % 0; Myelocytes % 0; Promyelocytes % 0; Reactive Lymphocytes 0
[2019-03-12 06:00] LABS: Albumin 2.2 g/dL (3.4-5.0); Magnesium 2.4 mg/dL (1.6-2.6); Potassium 3.4 mmol/L (3.5-5.1)
[2019-03-12 06:05] LABS: BUN/Creatinine Ratio 43.7; Bilirubin, Total 3.1 mg/dL (0.2-1.0); Phosphorus 1.9 mg/dL (2.5-4.90); Total Protein 5.5 g/dL (6.4-8.2)
[2019-03-12] MEDS: ACCU-CHEK COMFORT CURVE STRIP VI SCH ×3 (06:07→18:50)
[2019-03-12] MEDS: SUCRALFATE 1 GM TAB PO SCH ×4 (06:11→21:35)
[2019-03-12 06:24] LABS: Band Neutrophils % (manual) 1; Lymphocytes % (manual) 2 (10.0-50.0); Monocytes % (manual) 7 (0-12)
--- NOTE | 2019-03-12 07:28 | NUR ---
CLOSING NOTES ENDORSED CARE TO DAY SHIFT NURSEHUAN.
[2019-03-12 08:08] VITALS: BP 111/74
--- NOTE | 2019-03-12 08:21 | NUR ---
CALLED PHARMACY AND VERIFIED THAT VANCOMYCIN AND MERREM ARE COMPATIBLE WITH DOPAMINE DRIP.
--- NOTE | 2019-03-12 08:22 | NUR ---
IV removal IV infiltrated there fore Right fore arm IV DC'd with clean sterile technique, catheter fully intact. Pressure dressing applied to site. Patient tolerated well.
--- NOTE | 2019-03-12 08:24 | NUR ---
PAGED TIMBO REGARDING THE NEED FOR A PICC LINE INSERTION. AWAITING CALL BACK.
[2019-03-12 09:00] VITALS: BP 111/74
[2019-03-12] MEDS: ATENOLOL 25 MG TAB PO SCH (10:00)
[2019-03-12] MEDS ORDERED: SODIUM CHL 0.9% IV ONE (10:00)
[2019-03-12] MEDS ORDERED: POTASSIUM PHOSPHATE IV ONE (10:00)
--- NOTE | 2019-03-12 10:40 | NUR ---
IV insertion IV access obtained, via clean sterile technique by inserting 20 gauge catheter at Left Fore arm after 1 attempt(s). IV secured properly. No trauma to site. Patient tolerated well.
[2019-03-12] MEDS: GABAPENTIN 300 MG CAP PO SCH ×2 (10:42→21:35)
[2019-03-12] MEDS: PANTOPRAZOLE 40 MG TAB PO SCH ×2 (10:42→21:35)
[2019-03-12] MEDS: VANCOMYCIN 1GM/250ML 250 ML IV SCH (11:41)
--- NOTE | 2019-03-12 11:48 | NUR ---
Nutrition consult/Follow-up Notes Wt.: 76.5 kg Pt was sleeping with no family by bedside. per pt records pt with ca Pancrease s/p resection. pt with no distress noted per nursing. pt is currently on 2 gm na diet with inadequate PO of < 50% x4 per RN doc. noted pt also initiated on PN support with Clinimix from last night @ 42 ml./hr providing 510 kcals and 42.5 gm protein. pt with inadequate PN support as it meets 23-27% kcals and 47-56% proteins Est. Needs: 1850 kcal to 2200 kcal (25-30 kcal/kgBW), 74 gms to 89 gms pro (1.0-1.2 gms/kgBW). Will continue to monitor pertinent labs and reassess nutrient need prn Labs: BUN 38 H, LATIA 3.1 H, GLU 126 H, ALB 2.2 L, PREALB 6.0 L, TG wnl Skin: Kaushal scale 16, mod risk, skin intact per RN doc GI: Pt had 1 BM yesterday per documentation manager. PES: Altered nutrition related lab values r/t current/chronic medical condition aeb hyperglycemia, elev. BUN, VUt B12, low Fe, TIBC and mild hypoalbuminemia Increased nutrient needs r/t acute/chronic medical condition aeb 95% IBW, BMI 22.8 kg/m2, decreased muscle mass, reported wt loss, Syncopal episodes, Sepsis, Dehydration, mild hypoalbuminemia. Will continue to monitor PO intake, PN tolerance, skin status, pertinent labs and weight trend. F/u in 2-3 days. Rec.: 1.) 1.) Consider Ensure Enlive if pt's PO intake inadequate (<75%). 2.) If Albumin level continues trending down, consider Prostat 1 pkt BID. 3.) Consider close supervision and feeding assistance prn during meals. 4.) Refer to RD for further nutrition education and weight monitoring upon discharged. 5) advance PN support to meet > 75% of needs if PO continues to be low. 6.) Continue current plan of care.
[2019-03-12] MEDS: FLUCONAZOLE 200MG/100ML 100 ML IV SCH (12:59)
[2019-03-12 13:00] VITALS: BP 124/81
--- NOTE | 2019-03-12 15:28 | NUR ---
ORDERS RECEIVED FROM DR. IZQUIERDO, READ BACK AND VERIFIED.
--- NOTE | 2019-03-12 15:30 | NUR ---
PICC RN NOTIFIED OF PICC LINE ORDER. RN AWARE.
[2019-03-12 15:45] LABS: Platelet Count (auto) 505 10^3/uL (140-450)
[2019-03-12 16:29] VITALS: BP 111/70
[2019-03-12] MEDS: DOPamine 1600MCG/ML D5W 250 ML IV SCH (17:23)
[2019-03-12] MEDS: TAMSULOSIN HYDROCHLORIDE 0.4 MG CAP PO SCH (17:25)
[2019-03-12 17:31] LABS: INR 1.18 (0.9-1.15)
[2019-03-12] MEDS ORDERED: PPN PER PHARMACY IV NR ×10 (20:00)
--- NOTE | 2019-03-12 20:00 | NUR ---
FOUND PATIENT WITH IV ACCESS ON RIGHT WRIST OUT, PER PATIENT IT WAS AN ACCIDENT. PATIENT HAD A BOWEL MOVEMENT, PERICARE DONE, SACRUM APPEARS RED, ZGUARD CREAM APPLIED, LINEN CHANGED AND REPOSITIONED PATIENT TO HIS RIGHT SIDE, ENCOURAGED TO TURN EVERY 2 HOURS TO PREVENT BED SORE.
--- NOTE | 2019-03-12 20:20 | NUR ---
IV insertion IV access obtained, via clean sterile technique by inserting 20 gauge catheter at LEFT ANTECUBITAL after 3 attempt(s). IV secured properly. No trauma to site. Patient tolerated well. NOTE: PPN INFUSING ON THIS IV ACCESS
--- NOTE | 2019-03-12 20:30 | NUR ---
IV removal IV DC'd ON LEFT WRIST with clean sterile technique, catheter fully intact. Pressure dressing applied to site. Patient tolerated well. NOTE:
[2019-03-12] MEDS: ATORVASTATIN 20 MG TAB PO SCH (21:35)
[2019-03-12 22:00] VITALS: BP 120/72
--- NOTE | 2019-03-12 22:10 | NUR ---
VANCOMYCIN, MEROPENEM AND DIFLUCAN ARE ALL COMPATIBLE WITH DOPAMINE PER PHARMACIST'S VERIFICATION.
--- NOTE | 2019-03-12 22:30 | NUR ---
PICC RN CURRENTLY INSERTING PICC LINE, ASKED TO INSERT 3 LUMEN SINCE PT IS GETTING DOPAMINE DRIP, PPN AND MULTIPLE ABX.
--- NOTE | 2019-03-12 23:10 | NUR ---
PICC LINE UNSUCCESSFUL Patient educated on need for PICC line placement. All risks and benefits explained and all questions and concerns addressed prior to procedure. PT REFUSING PICC LINE UNLESS IT WAS ON LEFT SIDE. STATES HE HAD IT ON THE RIGHT SIDE BEFORE AND IT WAS UNCOMFORTABLE. Noted past medical history and allergies with no contraindications. INR and Plt counts within acceptable range. UNABLE TO ADVANCE WIRE. PICC LINE REMOVED. SECOND ATTEMPT TO USE RIGHT ARM, PT UNABLE TO MAINTAIN ARM STRAIGHT. REQUESTING TO STOP PICC LINE INSERTION. PRIMARY RN NOTIFIED Note:[]
[2019-03-13] MEDS: VANCOMYCIN 1GM/250ML 250 ML IV SCH ×3 (00:02→22:27)
[2019-03-13] MEDS: ACCU-CHEK COMFORT CURVE STRIP VI SCH ×4 (00:24→18:06)
[2019-03-13] MEDS: MEROPENEM 1GM IVPB 100 ML IV SCH ×3 (01:19→19:42)
[2019-03-13 05:15] VITALS: BP 114/63
[2019-03-13] MEDS: DOPamine 1600MCG/ML D5W 250 ML IV SCH ×2 (06:05→10:56)
[2019-03-13] MEDS: SUCRALFATE 1 GM TAB PO SCH ×4 (06:07→22:27)
[2019-03-13] MEDS: InsuLIN REG 1unit/0.01ml Soln (100units/ml) SC SCH ×4 (06:08→18:00)
[2019-03-13 06:18] LABS: Calcium 8.9 mg/dL (8.5-10.1); Magnesium 2.1 mg/dL (1.6-2.6); Potassium 3.8 mmol/L (3.5-5.1)
[2019-03-13 06:21] LABS: Bilirubin, Total 4.5 mg/dL (0.2-1.0); Phosphorus 1.8 mg/dL (2.5-4.90); Total Protein 4.9 g/dL (6.4-8.2)
--- NOTE | 2019-03-13 07:00 | NUR ---
Opening Shift Note Assumed care of patient who is awake, oriented x2, and sitting in chair, with eyes closed answering questions. No S/S of distress/SOB, but patient reporting general body weakness, and generalized body pain of 5/10. IV is in left AC 20 gauge, and is asymptomatic, intact, patent, and infusing Dopamine at 13.6 mL/hour. IV is in left forearm 20 gauge and is asymptomatic, intact, patent, and is infusing PPN at 48 mL/hour. Flores catheter patent and draining clear dark zenaida urine to gravity. Bed is locked and in lowest position and call light is within reach. Instructed on POC and to call for assist PRN, and patient verbalized understanding to the best of his ability. Will continue to monitor for changes Q1hr and PRN.
--- NOTE | 2019-03-13 07:15 | NUR ---
Moved patient back to bed from chair; maximum assistance needed.
[2019-03-13 08:00] VITALS: BP 109/76
[2019-03-13 08:52] VITALS: BP 109/76
[2019-03-13] MEDS: PANTOPRAZOLE 40 MG TAB PO SCH ×2 (09:58→22:27)
[2019-03-13] MEDS: GABAPENTIN 300 MG CAP PO SCH ×2 (09:58→22:27)
[2019-03-13] MEDS: ATENOLOL 25 MG TAB PO SCH (09:59)
[2019-03-13] MEDS ORDERED: SODIUM PHOSP 40 MEQ in D5W 5% 250 ML IV ONE (10:30)
[2019-03-13] MEDS: FLUCONAZOLE 200MG/100ML 100 ML IV SCH (12:00)
[2019-03-13 13:00] VITALS: BP 110/73
--- NOTE | 2019-03-13 15:55 | NUR ---
Called housekeeping room attendant about PICC placement.
--- NOTE | 2019-03-13 16:00 | NUR ---
IV removal X2 right forearm and AC IV's DC'd with clean sterile technique, catheter fully intact. Pressure dressing applied to site. Patient tolerated well.
--- NOTE | 2019-03-13 16:37 | NUR ---
Family requested to add Daughter Unique to emergency contact list. Phone number is [phone]
[2019-03-13 17:00] VITALS: BP 101/61
--- NOTE | 2019-03-13 17:25 | NUR ---
PICC line RNHerb, at bedside.
[2019-03-13] MEDS: TAMSULOSIN HYDROCHLORIDE 0.4 MG CAP PO SCH (18:00)
--- NOTE | 2019-03-13 18:00 | NUR ---
special procedures technologist is at bedside.
--- NOTE | 2019-03-13 18:09 | NUR ---
PICC line placement Patient/Patient significant other educated on need for PICC line placement. All risks and benefits explained and all questions and concerns addressed prior to procedure. Noted past medical history and allergies with no contraindications. INR and Plt counts within acceptable range. 5 fr PICC line inserted via right basilic vein using [employer] US and Tip Location System. Sterile technique with maximum barrier precautions utilized. Blood return obtained from each of the three lumens and each flushed easily with NS using proper technique. PICC secured with Stat-lock; biodisc and occlusive dressing applied. Less than 5ml EBL noted during procedure. PICC line 41cm internally w/ 0cm externally. Stat portable chest x-ray obtained for PICC tip placement. To notify staff physical therapy assistant when line able to be used. *Baseline Arm Circumference 28cm at 1cm above insertion site. PICC lot # [id number]. Note:
[2019-03-13] MEDS ORDERED: LIDOCAINE 1% (LOCAL ANESTH.) PF 5ml SDV ID ONE (18:15)
--- NOTE | 2019-03-13 18:32 | NUR ---
OK to use PICC line Xray completed. PCXR shows PICC line tip in the region of the cavoatrial junction; radiologist confirmation pending. Ana Laura Cota. notified now OK to use PICC line.
--- NOTE | 2019-03-13 19:30 | NUR ---
Endorsed care to processor grain RN.
[2019-03-13] MEDS ORDERED: PPN PER PHARMACY IV NR ×9 (20:00)
--- NOTE | 2019-03-13 20:00 | NUR ---
Opening Shift Note Assumed care of patient, awake and alert to self and place. Dopamine and PPN infusing in Right PICC. Emphasized importance of frequent repositioning to prevent bed sore on sacrum, patient agrees and cooperates. No S/S of distress/SOB or pain. Instructed on POC and to call for assist PRN, will continue to monitor for changes Q1hr and PRN.
[2019-03-13 21:59] VITALS: BP 110/62
[2019-03-13] MEDS: ATORVASTATIN 20 MG TAB PO SCH (22:27)
[2019-03-13] MEDS: SODIUM CHLOR 0.9% PF (SALINE LOCK) 10ML VIAL/SYR IV SCH (22:28)
[2019-03-14] MEDS: ACCU-CHEK COMFORT CURVE STRIP VI SCH ×4 (00:29→18:06)
[2019-03-14] MEDS: MEROPENEM 1GM IVPB 100 ML IV SCH ×3 (00:33→17:00)
[2019-03-14] MEDS: InsuLIN REG 1unit/0.01ml Soln (100units/ml) SC SCH ×4 (00:33→18:00)
[2019-03-14 05:11] LABS: Basophils # (auto) 0.1 uL; Basophils % (auto) 0.3 % (0.0-2.0); Eosinophils # (auto) 0 uL; Eosinophils % (auto) 0.2 % (0.0-7.0); Hematocrit 30.6 % (41.0-53.0); Hemoglobin 10.1 g/dL (13.5-17.5); Lymphocytes # (auto) 0.4 uL; Lymphocytes % (auto) 2.3 % (10.0-50.0); Mean Corpuscular Hemoglobin 26.9 pg (28.0-32.0); Mean Corpuscular Volume 81.5 fL (80.0-100.0); Monocytes # (auto) 1.9 uL; Monocytes % (auto) 9.8 % (0.0-12.0); Neutrophils # (auto) 16.8 uL; Neutrophils % (auto) 87.4 % (37.0-80.0); Nucleated Red Blood Cells % 0.5 %; Platelet Count (auto) 487 10^3/uL (140-450); Red Blood Cells 3.76 10^6/uL (4.5-5.90); Red Cell Distribution Width 16.7 % (11.8-14.3); White Blood Cell 19.2 10^3/uL (4.4-10.8)
[2019-03-14 05:28] VITALS: BP 116/68
[2019-03-14 05:29] LABS: Potassium 3.9 mmol/L (3.5-5.1)
[2019-03-14 05:35] LABS: Albumin 1.9 g/dL (3.4-5.0); BUN/Creatinine Ratio 45.8; Bilirubin, Total 5.2 mg/dL (0.2-1.0); Calcium 8.7 mg/dL (8.5-10.1); Magnesium 2.2 mg/dL (1.6-2.6); Phosphorus 3.3 mg/dL (2.5-4.90); Total Protein 5.1 g/dL (6.4-8.2)
[2019-03-14] MEDS: SUCRALFATE 1 GM TAB PO SCH ×4 (06:10→22:00)
--- NOTE | 2019-03-14 07:00 | NUR ---
Opening Shift Note Assumed care of patient who is awake, oriented x4 and lying semi-fowlers supine in bed. Provided partial linen change and repositioned patient for comfort. No S/S of distress/SOB. PICC line is in right upper arm triple lumen and is infusing Dopamine at 13.75 mL/hour, and infusing PPN at 45 mL/hour. Flores catheter patent and draining clear dark zenaida urine to gravity. Bed is locked and in lowest position and call light is within reach. Instructed on POC and to call for assist PRN, and patient verbalized understanding. Will continue to monitor for changes Q1hr and PRN.
[2019-03-14] MEDS: DOPamine 1600MCG/ML D5W 250 ML IV SCH (08:12)
[2019-03-14 09:00] VITALS: BP 107/66
[2019-03-14] MEDS: SODIUM CHLOR 0.9% PF (SALINE LOCK) 10ML VIAL/SYR IV SCH ×2 (09:42→21:35)
[2019-03-14] MEDS: PANTOPRAZOLE 40 MG TAB PO SCH ×2 (09:55→22:41)
[2019-03-14] MEDS: GABAPENTIN 300 MG CAP PO SCH ×2 (09:55→22:00)
[2019-03-14] MEDS: ATENOLOL 25 MG TAB PO SCH (09:56)
[2019-03-14] MEDS: VANCOMYCIN 1,250 MG in D5W 5% 250 ML IV SCH ×2 (10:15→21:34)
--- NOTE | 2019-03-14 11:11 | NUR ---
Nutrition Follow-up Notes Wt.: 79.7 kg Pt was sleeping with no family by bedside. per pt records pt with ca Pancrease s/p resection. pt with no distress noted per nursing. pt is currently on 2 gm na diet with inadequate PO of < 50% x 2 days per RN doc. noted pt also on PN support @ 45 ml./hr providing 740 kcals and 50 gm protein 540 NCP. pt with inadequate PN support as it meets 33-40% kcals and 56-67% proteins Est. Needs: 1850 kcal to 2200 kcal (25-30 kcal/kgBW), 74 gms to 89 gms pro (1.0-1.2 gms/kgBW). Will continue to monitor pertinent labs and reassess nutrient need prn Labs: BUN 33 H, GLU 121 H, LATIA 5.2 H, ALB 1.9 L. Skin: Kaushal scale 16, mod risk, skin intact per RN doc GI: Pt had 1 BM yesterday per linter tender. PES: Altered nutrition related lab values r/t current/chronic medical condition aeb hyperglycemia, elev. BUN, VUt B12, low Fe, TIBC and mild hypoalbuminemia Increased nutrient needs r/t acute/chronic medical condition aeb 95% IBW, BMI 22.8 kg/m2, decreased muscle mass, reported wt loss, Syncopal episodes, Sepsis, Dehydration, mild hypoalbuminemia. Will continue to monitor PO intake, PN tolerance, skin status, pertinent labs and weight trend. F/u in 2-3 days. Rec.: 1.) 1.) Consider Ensure Enlive if pt's PO intake inadequate (<75%). 2.) If Albumin level continues trending down, consider Prostat 1 pkt BID. 3.) Consider close supervision and feeding assistance prn during meals. 4.) Refer to RD for further nutrition education and weight monitoring upon discharged. 5) advance PN support to meet > 75% of needs if PO continues to be low. 6.) Continue current plan of care.
[2019-03-14] MEDS: FLUCONAZOLE 200MG/100ML 100 ML IV SCH (12:14)
[2019-03-14 12:40] VITALS: BP 106/61
--- NOTE | 2019-03-14 14:20 | NUR ---
Dr. Shaun MD, at bedside. New orders received.
[2019-03-14] MEDS ORDERED: MAGNESIUM CITRATE SOLUTION 300 ML BTL PO ONE ×2 (14:45→18:15)
[2019-03-14 17:00] VITALS: BP 119/71
[2019-03-14] MEDS: TAMSULOSIN HYDROCHLORIDE 0.4 MG CAP PO SCH (18:00)
[2019-03-14] MEDS ORDERED: TPN PER PHARMACY IV NR ×9 (20:00)
--- NOTE | 2019-03-14 22:06 | NUR ---
Opening Shift Note Assumed care of patient, awake and alert and oriented to self and place. Patient with right PICC 3 lumen, dopamine drip and TPN infusing. CHG bath, pericare, linen change and oral care provided. Encouraged to reposition every 2 hours to prevent pressure ulcer, sacrum with blanchable redness, Z guard cream applied, Flores catheter in place with dark zenaida color urine output. No S/S of distress/SOB or pain. Instructed on POC and to call for assist PRN, will continue to monitor for changes Q1hr and PRN.
[2019-03-14 22:07] VITALS: BP 106/66
[2019-03-14] MEDS: ATORVASTATIN 20 MG TAB PO SCH (22:41)
[2019-03-15] MEDS: MEROPENEM 1GM IVPB 100 ML IV SCH ×3 (00:29→18:46)
[2019-03-15] MEDS: ACCU-CHEK COMFORT CURVE STRIP VI SCH ×4 (00:39→18:19)
[2019-03-15] MEDS: InsuLIN REG 1unit/0.01ml Soln (100units/ml) SC SCH ×4 (00:39→18:18)
[2019-03-15] MEDS: DOPamine 1600MCG/ML D5W 250 ML IV SCH ×2 (04:04→22:16)
[2019-03-15 05:20] VITALS: BP 108/55
[2019-03-15 05:59] LABS: Potassium 3.9 mmol/L (3.5-5.1)
[2019-03-15] MEDS: SUCRALFATE 1 GM TAB PO SCH ×4 (06:03→22:00)
[2019-03-15 06:05] LABS: Albumin 1.8 g/dL (3.4-5.0); BUN/Creatinine Ratio 57.4; Bilirubin, Total 3.6 mg/dL (0.2-1.0); Calcium 8.7 mg/dL (8.5-10.1); Magnesium 2.5 mg/dL (1.6-2.6); Phosphorus 2.1 mg/dL (2.5-4.90); Total Protein 4.8 g/dL (6.4-8.2)
--- NOTE | 2019-03-15 06:34 | NUR ---
PATIENT DID NOT HAVE ANY BOWEL MOVEMENT AFTER MG CITRATE. PER DR. IZQUIERDO, PATIENT WILL GO FO CT ABDOMEN AFTER HAVING A BM. WILL ENDORSE TO MORNING RN. PATIENT IS ALSO AWARE OF PLAN BUT INTERMITTENTLY DISORIENTED, NEEDS FREQUENT REORIENTATION, ABDOMEN APPEARS DISTENDED, DENIES ANY PAIN.
--- NOTE | 2019-03-15 07:00 | NUR ---
Opening Shift Note Assumed care of the patient from the shift engineer RNBekah. The patient is A&Ox2, no signs or symptoms of distress. Educated the patient on POC, but patient will need frequent reorienting. The patient's call light is within reach, bed alarm on, and bed is in the lowest, locked position. Will round frequently due to patient confusion. Patient room is close to nursing station. Will continue to monitor.
[2019-03-15 08:00] VITALS: BP 110/69
[2019-03-15 09:15] VITALS: BP 110/69
[2019-03-15] MEDS: VANCOMYCIN 1,250 MG in D5W 5% 250 ML IV SCH (10:16)
[2019-03-15] MEDS: SODIUM CHLOR 0.9% PF (SALINE LOCK) 10ML VIAL/SYR IV SCH ×2 (10:16→22:09)
[2019-03-15] MEDS: PANTOPRAZOLE 40 MG TAB PO SCH ×2 (10:17→22:00)
[2019-03-15] MEDS: GABAPENTIN 300 MG CAP PO SCH ×2 (10:17→22:00)
[2019-03-15] MEDS: ATENOLOL 25 MG TAB PO SCH (10:18)
[2019-03-15] MEDS ORDERED: LACTULOSE 20Gm/30ML SOLN PO PRN (11:15)
[2019-03-15] MEDS: FLUCONAZOLE 200MG/100ML 100 ML IV SCH (12:03)
[2019-03-15 13:00] VITALS: BP 104/68
--- NOTE | 2019-03-15 16:23 | NUR ---
DIFFICULTY BREATHING. PATIENT WAS HAVING A DIFFICULT TIME TALKING BECAUSE HE COULD NOT CATCH HIS BREATH. THE PATIENT WAS ALREADY IN HIGH FOWLERS AND ON 2L NC. PATIENT'S O2 SATS 89-91%. INCREASED O2 TO 3L NC AND SATS INCREASED TO 97%. WILL CONTINUE TO MONITOR.
--- NOTE | 2019-03-15 16:51 | NUR ---
PAGED DR. IZQUIERDO PATIENT IS SATING AT 96% WITH 3L NASAL CANNULA AND IN HIGH FOWLERS. THE PATIENT CANNOT SPEAK A SENTENCE WITHOUT LOSING HIS BREATH. BLOOD PRESSURE 92/58 MMHG AND HEART RATE 112 BPM. WILL WAIT FOR RETURN CALL AND CONTINUE TO MONITOR.
[2019-03-15 16:52] VITALS: BP 92/58
--- NOTE | 2019-03-15 18:06 | NUR ---
DR. IZQUIERDO RETURNED PAGE DR. IZQUIERDO GAVE ORDERS FOR LASIX 20 MG IVP ONCE. WILL PLACE ORDER AND CARRY OUT. WILL CONTINUE TO MONITOR.
[2019-03-15] MEDS: TAMSULOSIN HYDROCHLORIDE 0.4 MG CAP PO SCH (18:18)
[2019-03-15] MEDS ORDERED: FUROSEMIDE 20 MG/2 ML VIAL IV ONE (18:30)
[2019-03-15 19:01] LABS: Hematocrit 28.2 % (41.0-53.0); Hemoglobin 9.2 g/dL (13.5-17.5); Mean Corpuscular Hemoglobin 26.8 pg (28.0-32.0); Mean Corpuscular Hgb Conc. 32.6 g/dL (32.0-36.0); Platelet Count (auto) 436 10^3/uL (140-450); Red Blood Cells 3.44 10^6/uL (4.5-5.90); Red Cell Distribution Width 16.3 % (11.8-14.3); White Blood Cell 24.1 10^3/uL (4.4-10.8)
[2019-03-15 19:20] LABS: Band Neutrophils % (manual) 0; Basophils % (manual) 0 (0.0-2.0); Blast Cells 0; Eosinophils % (manual) 0 (0-7); Metamyelocytes % 0; Myelocytes % 0; Promyelocytes % 0; Reactive Lymphocytes 0
[2019-03-15] MEDS ORDERED: TPN PER PHARMACY IV NR ×8 (20:00)
--- NOTE | 2019-03-15 20:29 | NUR ---
PAGED DR. CRUZ TO NOTIFY OF CT ABDOMEN RESULTS, AWAITING FOR CALL BACK.
--- NOTE | 2019-03-15 20:37 | NUR ---
SPOKE WITH DR. CRUZ AND INFORMED HIM OF THE CT ABDOMEN RESULTS, ORDERED TO KEEP PT NPO AND SMALL BOWEL FOLLOW THROUGH WITH GASTROGRAFFIN. ORDERS PLACED.
[2019-03-15 21:54] LABS: Lymphocytes % (manual) 1 (10.0-50.0); Monocytes % (manual) 9 (0-12)
[2019-03-15 22:00] VITALS: BP 96/62
[2019-03-15] MEDS: ATORVASTATIN 20 MG TAB PO SCH (22:00)
[2019-03-16] VITALS (8 sets, daily range): BP systolic 97–108; BP diastolic 50–71
[2019-03-16] MEDS: MEROPENEM 1GM IVPB 100 ML IV SCH ×3 (00:37→17:32)
[2019-03-16] MEDS: ACCU-CHEK COMFORT CURVE STRIP VI SCH ×5 (00:37→23:40)
[2019-03-16] MEDS: InsuLIN REG 1unit/0.01ml Soln (100units/ml) SC SCH ×5 (00:38→23:40)
[2019-03-16 06:10] LABS: Albumin 1.9 g/dL (3.4-5.0); BUN/Creatinine Ratio 62.5; Calcium 8.5 mg/dL (8.5-10.1); Magnesium 3.2 mg/dL (1.6-2.6); Potassium 4.3 mmol/L (3.5-5.1)
[2019-03-16 06:13] LABS: Bilirubin, Total 3.1 mg/dL (0.2-1.0); Phosphorus 2.8 mg/dL (2.5-4.90); Total Protein 5.1 g/dL (6.4-8.2)
[2019-03-16] MEDS: SUCRALFATE 1 GM TAB PO SCH ×4 (07:00→22:02)
[2019-03-16] MEDS ORDERED: GASTROGRAFIN 120 ML SOL ONE (07:27)
--- NOTE | 2019-03-16 09:36 | NUR ---
Paged Dr. Dunn Paged the physician regarding the patient's continued shortness of breath and wheezing in the upper lobes. The patient's abdomen has increased in size and firmness. The patient is more uncomfortable and feeling more compressed. Will wait for reply and continue to monitor.
[2019-03-16] MEDS: PANTOPRAZOLE 40 MG TAB PO SCH ×2 (09:52→22:02)
[2019-03-16] MEDS: SODIUM CHLOR 0.9% PF (SALINE LOCK) 10ML VIAL/SYR IV SCH ×2 (09:52→22:03)
[2019-03-16] MEDS: GABAPENTIN 300 MG CAP PO SCH ×2 (09:52→22:02)
[2019-03-16] MEDS: ATENOLOL 25 MG TAB PO SCH (09:53)
--- NOTE | 2019-03-16 09:55 | NUR ---
Dr. Dunn returned page Dr. Dunn returned page and orders given to place patient NPO, CT of abdomen and Atrovent 0.5 med neb q6hr. Will place order for med neb. Informed Dr. Dunn that Dr. Lilly already placed the patient as NPO status and ordered CT of abdomen/pelvis. Will carry out orders and continue to monitor.
[2019-03-16] MEDS ORDERED: IPRATROPIUM BROM 0.5 MG/2.5ML INH SOL NEB SCH (12:00)
[2019-03-16] MEDS: IPRATROPIUM BROM 0.5 MG/2.5ML INH SOL NEB PRN ×3 (12:02→22:14)
[2019-03-16] MEDS: FLUCONAZOLE 200MG/100ML 100 ML IV SCH (12:27)
--- NOTE | 2019-03-16 14:53 | NUR ---
Nutrition Follow-up Notes Wt.: 82.5 kg as of yesterday. Pt's on oxygen via nasal cannula, asleep, no signs of distress noted earlier, currently NPO with TPN @ 57 ml/hr providing 1400 kcal, 70 gms pro, 1120 NPCs and 7% Fat. Pt with inadequate PN support d/t low initiation rate delivery of concentrated formula aeb current PN infusion meets 64% to 76% of est caloric needs and meets 63% to 79% of est protein needs. Noted pt's to receive tonight another TPN @ 65 ml/hr providing 1610 kcal, 80 gms pro, 1290 NPCs and 6% Fat. Est. Needs: 1850 kcal to 2200 kcal (25-30 kcal/kgBW), 89 gms to 111 gms pro (1.2-1.5 gms/kgBW reassessed d/t severe hypoalbuminemia). Will continue to monitor pertinent labs and reassess nutrient need prn Labs: Gluc 122 H, Na 131 L, BUN 45 H, Mg 3.2 H, Tot casper 5.1 H, AST 240 H, ALT 245 H, ALP 356 H, Tpro 5.1 L, Alb 1.9 L; Prealb 6.0 L, Trig 61 wnl Skin: Kaushal scale 15, mod risk, skin intact per RN doc GI: Pt had 1 BM 03/13/19 per telegraph mechanic. PES: Altered nutrition related lab values r/t current/chronic medical condition aeb hyperglycemia, elev. BUN, VUt B12, low Fe, TIBC and mild hypoalbuminemia Increased nutrient needs r/t acute/chronic medical condition aeb 95% IBW, BMI 22.8 kg/m2, decreased muscle mass, reported wt loss, Syncopal episodes, Sepsis, Dehydration, mild hypoalbuminemia. Will continue to monitor NPO status, PN tolerance, skin status, pertinent labs and weight trend. F/u in 2 to 3 days. Rec.: 1.) If still NPO with PN support, consider gradual increase on calories and protein to meet at least 75% of est nutrient needs. 2.) Advance gradually to oral diet when medically appropriate. 3.) Refer to RD for further nutrition education and weight monitoring upon discharged. 4.) Continue current plan of care.
[2019-03-16 14:57] LABS: INR 1.25 (0.9-1.15)
[2019-03-16] MEDS: VANCOMYCIN 1GM/250ML 250 ML IV SCH (15:30)
--- NOTE | 2019-03-16 17:00 | NUR ---
XOPENEX DR. WONG ORDERED MED NEB FOR PATIENT. THE PATIENT HAD O2 SATS IN THE 80'S. PLACED PATIENT ON 5L O2, WHICH BROUGHT O2 TO 96%. DR. WONG CAME TO BEDSIDE DURING PATIENT'S DISTRESS AND ORDERED XOPENEX 1.25 Q6HR BECAUSE OF SOB AND PATIENT'S HEART RATE IN 120'S. WILL ORDER AND CONTINUE TO MONITOR.
[2019-03-16] MEDS: DOPamine 1600MCG/ML D5W 250 ML IV SCH (18:00)
[2019-03-16] MEDS: TAMSULOSIN HYDROCHLORIDE 0.4 MG CAP PO SCH (18:00)
--- NOTE | 2019-03-16 18:22 | NUR ---
Respiratory note: PRN TX GIVEN AT THIS TIME. SPOKE WITH RN OVER THE PHONE AND STATED PTS SATS HAD DROPPED DOWN TO THE 70'S BUT HAD COME BACK UP AND DR. SWARTZ ORDERED XOPENEX FOR THE PT. NO ORDER IN COMPUTER AT THIS TIME, PT RECEIVED PRN ATROVENT. PTS HANDS EXTREMELY COLD, DIFFICULT TO .NET DEVELOPER ACCURATE O2 SATURATION AND HR. AFTER PULSE OX SETTLED, SPO2 READING AT 99% ON 5L NC, HR 122. SOME SOB NOTED. POST TX DECREASED O2 TO 4LPM, SATS REMAIN AT 98%. PTS WORK OF BREATHING REMAINS UNCHANGED POST TX. BREATH SOUNDS CLEAR/DIMINISHED IN UPPER LOBES, FAINT CRACKLES IN BILATERAL BASES. WILL CONTINUE WITH CARE.
[2019-03-16] MEDS ORDERED: LEVA1NEB5 IN (18:42)
[2019-03-16] MEDS ORDERED: HALOPERIDOL LACTATE 5 MG/ML INJ VIAL IM PRN (18:45)
[2019-03-16] MEDS ORDERED: TPN PER PHARMACY IV NR ×8 (20:00)
--- NOTE | 2019-03-16 20:00 | NUR ---
OPENING SHIFT NOTE: PATIENT RESTING IN BED. HE IS CONFUSED HE THOUGHT HE WAS AT [facility] AND DID NOT KNOE HE HAD A GARCIA IN PLACE. I REORIENTED HIM TO HIS SURROUNDINGS. HE DOES NOT COMPLAIN OF ANY PAIN AT THE MOMENT. HE DOES REPORT SHORTNESS OF BREATH. HE IS CURRENTLY ON 4L NC SATTING AT 97%. BED IS LOCKED IN LOWEST POSITION WITH SIDE RAILS UP X2. WILL CONTINUE TO MONITOR.
[2019-03-16] MEDS: ATORVASTATIN 20 MG TAB PO SCH (22:02)
[2019-03-16] MEDS: LEVALBUTEROL HCL 1.25 MG/3 ML NEB NEB SCH (22:14)
[2019-03-17] VITALS (10 sets, daily range): BP systolic 98–120; BP diastolic 57–78
[2019-03-17] MEDS: MEROPENEM 1GM IVPB 100 ML IV SCH ×3 (01:27→18:30)
[2019-03-17 06:28] LABS: Calcium 9.3 mg/dL (8.5-10.1); Magnesium 2.9 mg/dL (1.6-2.6); Potassium 4.3 mmol/L (3.5-5.1)
[2019-03-17 06:35] LABS: BUN/Creatinine Ratio 77.1; Bilirubin, Total 2.4 mg/dL (0.2-1.0); Phosphorus 2.7 mg/dL (2.5-4.90); Pre Albumin 11.1 mg/dL (20.0-40.0); Total Protein 5.5 g/dL (6.4-8.2)
[2019-03-17] MEDS: ACCU-CHEK COMFORT CURVE STRIP VI SCH ×3 (06:37→19:50)
[2019-03-17] MEDS: InsuLIN REG 1unit/0.01ml Soln (100units/ml) SC SCH ×3 (06:37→18:00)
[2019-03-17] MEDS: SUCRALFATE 1 GM TAB PO SCH ×4 (06:38→22:00)
--- NOTE | 2019-03-17 07:00 | NUR ---
OPENING SHIFT NOTE Assumed care of the patient from the fast food shift lead RN. The patient was more confused this morning. He had taken off his clothes and could only tell me his name. The patient is very fatigued and seems to doze off as I am speaking with him. The night nurse stated that the patient was awake until midnight, but did sleep through the night without incident with his breathing. The patient's is on 4L via NC and sating at 93% while resting. The patient is a mouth breather and when he closes his mouth his O2 sats do increase by 2-3%. Respirations are 22 bpm. The patient has nonblanchable redness to his sacrum. Will place a wound consult for the blanchable redness. Will continue to turn q2hrs. The patient has no obvious signs of distress. Keeping the room quiet with low lighting to keep patient calm. He can become agitated with lots of noise and commotion, which decreases his ability to oxygenate and decreases his O2 saturation into the low 80's. The patient is resting with call light within reach, bed in the lowest, locked position and bed alarm on. Will round hourly and PRN and continue to monitor.
[2019-03-17] MEDS: LEVALBUTEROL HCL 1.25 MG/3 ML NEB NEB SCH ×4 (07:06→23:10)
[2019-03-17] MEDS: VANCOMYCIN 1GM/250ML 250 ML IV SCH (09:19)
[2019-03-17] MEDS: ATENOLOL 25 MG TAB PO SCH (10:00)
[2019-03-17] MEDS: GABAPENTIN 300 MG CAP PO SCH ×2 (10:00→22:00)
[2019-03-17] MEDS: PANTOPRAZOLE 40 MG TAB PO SCH ×2 (10:00→22:00)
[2019-03-17] MEDS: SODIUM CHLOR 0.9% PF (SALINE LOCK) 10ML VIAL/SYR IV SCH ×2 (10:14→22:03)
[2019-03-17] MEDS ORDERED: LIDOCAINE 2%HCL (LOCAL ANESTH.) INJ 20ML MDV ONE (11:59)
[2019-03-17] MEDS: DOPamine 1600MCG/ML D5W 250 ML IV SCH (12:00)
[2019-03-17] MEDS ORDERED: LIDOCAINE 1% HCL (LOCAL ANESTH.) INJ 20ML MDV IJ ONE (12:15)
[2019-03-17] MEDS: FLUCONAZOLE 200MG/100ML 100 ML IV SCH (12:33)
[2019-03-17] MEDS: SODIUM FERR GLUC 62.5MG/5ML 125 MG in SODIUM CHL 0.9% 100 ML IV SCH (12:48)
[2019-03-17] MEDS ORDERED: fentaNYL CITRATE 100 MCG/2 ML VL IV ONE (13:30)
[2019-03-17] MEDS ORDERED: MIDAZOLAM HCL 1MG/1ML-2 ML VIAL IV ONE (13:30)
--- NOTE | 2019-03-17 13:30 | NUR ---
CONSENTS FOR CT GUIDED ABDOMINAL ABSCESS DRAINAGE SECURED
--- NOTE | 2019-03-17 14:30 | NUR ---
CT GUIDED ABDOMINAL ABSCESS DRAINAGE: 1338 PT IS ALERT ORIENTED A/O X4, ON DOPAMINE DRIP AT 5MCG/KG/MIN, ON 02 AT 4LPM/NC, V/S STABLE 1340 DR REN AT BEDSIDE 1345 LOCAL ANESTHESIA ADMINISTERED BY DR. REN (PLS. SEE EMAR), VERSED AND FENTANYL GIVEN BY MARSHA LIU (PLS SEE EMAR). 1415 PROCEDURE FINALIZED, DRAINAGE TUBING SECURED BY DR. REN. DRAINAGE BAG ATTACHED. DRAINING DARK SEROUS FLUID. 1420 DRAINAGE SAMPLE SENT TO PATHOLOGY W/ REQUEST FORM 1430 ATTEMPTED TO CONTACT THE NURSE IN CHARGE FOR REPORT MULTIPLE TIMES, TO NO AVAIL. WILL ATTEMPT AT A LATER TIME.
--- NOTE | 2019-03-17 15:00 | NUR ---
ACCORDIAN DRAIN DRAINAGE 35O ML DARK RED, THICK DRAINAGE. WILL CONTINUE TO MONITOR.
--- NOTE | 2019-03-17 16:41 | NUR ---
Paged Dr. Dunn Paged Dr. Dunn regarding the KUB results. Showing concern for complete small bowel obstruction. Will wait for return reply.
--- NOTE | 2019-03-17 17:00 | NUR ---
Dr. Dunn returned page Dr. Dunn returned page. The physician ordered NG tube placement to LIS. Will place order and carry out. Will carry out protocol for NG placement. Will continue to monitor.
[2019-03-17] MEDS: TAMSULOSIN HYDROCHLORIDE 0.4 MG CAP PO SCH (18:00)
--- NOTE | 2019-03-17 18:00 | NUR ---
Nasogastric tube insertion Patient educated on need for NG tube. All questions addressed. NGT, 16 qatari, inserted per MD order. Placement verified by aspiration of stomach contents, auscultation and chest xray.
--- NOTE | 2019-03-17 18:10 | NUR ---
CHEST X-RAY TO CHECK PLACEMENT PERFORMED. WILL WAIT FOR RESULTS TO FIND OUT IF NG TUBE IS IN CORRECT PLACEMENT IN THE STOMACH AND PLACE TO SUCTION. WILL CONTINUE TO MONITOR.
--- NOTE | 2019-03-17 18:30 | NUR ---
Patient moved rooms Patient Transferred to 298 [address], with a sitter to monitor for pulling out of drains and NG tube.
[2019-03-17] MEDS ORDERED: TPN PER PHARMACY IV NR ×8 (20:00)
--- NOTE | 2019-03-17 20:00 | NUR ---
OPENING SHIFT NOTE: PATIENT SEEMS TO BE MORE ALERT THAN YESTERDAY FOLLOWING THE PROCEDURE. HE IS STILL ON THE DOBUTAMINE DRIP, GARCIA IN PLACE WELL AN NG TUBE PLACED TODAY. HE HAS GREEN COLORED LIQUID DRAINING FROM THE NG TUBE WHICH IS ON LIGHT INTERMITTENT SUCTION. HE ALSO HAS AN ACCORDION DRAIN DRAINING DARK BROWN/REDDISH SLUDGE LIKE LIQUID. HE IS AO X2-3. SITTER IS PRESENT IN THE ROOM. BED IS LOCKED IN LOWEST POSITION WITH SIDE RAILS UP X2. WILL CONTINUE TO MONITOR.
[2019-03-17] MEDS: IPRATROPIUM BROM 0.5 MG/2.5ML INH SOL NEB PRN (20:07)
[2019-03-17] MEDS: ATORVASTATIN 20 MG TAB PO SCH (22:00)
[2019-03-18] MEDS: ACCU-CHEK COMFORT CURVE STRIP VI SCH ×4 (00:34→17:42)
[2019-03-18] MEDS: InsuLIN REG 1unit/0.01ml Soln (100units/ml) SC SCH ×4 (00:34→17:42)
[2019-03-18] MEDS: MEROPENEM 1GM IVPB 100 ML IV SCH ×3 (01:47→18:38)
[2019-03-18] MEDS: VANCOMYCIN 1GM/250ML 250 ML IV SCH ×2 (04:54→21:37)
[2019-03-18] MEDS: LEVALBUTEROL HCL 1.25 MG/3 ML NEB NEB SCH ×4 (06:19→22:00)
[2019-03-18] MEDS: SUCRALFATE 1 GM TAB PO SCH ×4 (06:28→22:54)
[2019-03-18] MEDS: DOPamine 1600MCG/ML D5W 250 ML IV SCH (06:28)
--- NOTE | 2019-03-18 07:30 | NUR ---
OPENING NOTE The patient is received alert and oriented times two with no SOB or s/s of distress at this time. The patient is resting in bed int he lowest position with sitter bedside, will continue to monitor and POC.
[2019-03-18 07:37] LABS: Albumin 1.7 g/dL (3.4-5.0); Magnesium 2.4 mg/dL (1.6-2.6); Potassium 4.4 mmol/L (3.5-5.1)
[2019-03-18 07:42] LABS: BUN/Creatinine Ratio 68.6; Bilirubin, Total 1.7 mg/dL (0.2-1.0); Phosphorus 2.4 mg/dL (2.5-4.90); Total Protein 4.9 g/dL (6.4-8.2)
[2019-03-18 09:00] VITALS: BP 103/65
--- NOTE | 2019-03-18 09:30 | NUR ---
FAMILY CALLS The patient's family calls and is updated on the patient's POC.
[2019-03-18] MEDS: PANTOPRAZOLE 40 MG TAB PO SCH (10:00)
[2019-03-18 10:22] LABS: White Blood Cell 19.8 10^3/uL (4.4-10.8)
[2019-03-18 10:23] LABS: Hematocrit 26.8 % (41.0-53.0); Hemoglobin 8.7 g/dL (13.5-17.5); Mean Corpuscular Hemoglobin 26.9 pg (28.0-32.0); Mean Corpuscular Hgb Conc. 32.2 g/dL (32.0-36.0); Mean Corpuscular Volume 83.6 fL (80.0-100.0); Platelet Count (auto) 592 10^3/uL (140-450); Red Blood Cells 3.21 10^6/uL (4.5-5.90); Red Cell Distribution Width 17.2 % (11.8-14.3)
[2019-03-18] MEDS: GABAPENTIN 300 MG CAP PO SCH ×2 (10:28→22:54)
[2019-03-18] MEDS: ATENOLOL 25 MG TAB PO SCH (10:28)
[2019-03-18] MEDS: SODIUM CHLOR 0.9% PF (SALINE LOCK) 10ML VIAL/SYR IV SCH ×2 (10:28→22:56)
[2019-03-18 10:29] LABS: Basophils % (manual) 0 (0.0-2.0); Blast Cells 0; Metamyelocytes % 0; Myelocytes % 0; Promyelocytes % 0; Reactive Lymphocytes 0
--- NOTE | 2019-03-18 10:30 | NUR ---
PHYSICIAN BEDSIDE Dr. Dunn is bedside and updates the patient and the patient's family on the POC.
[2019-03-18 10:57] LABS: Band Neutrophils % (manual) 2; Eosinophils % (manual) 1 (0-7); Lymphocytes % (manual) 3 (10.0-50.0); Monocytes % (manual) 4 (0-12)
[2019-03-18] MEDS ORDERED: SODIUM CHLORIDE 0.9% 500 ML IV ONE (11:30)
--- NOTE | 2019-03-18 11:34 | NUR ---
Nutrition Follow-up Notes Wt.: 84.0 kg Pt's on oxygen via nasal cannula, asleep, no signs of distress noted earlier, currently NPO with TPN @ 57 ml/hr providing 1880 kcal, 80 gms pro, 1560 NPCs. Pt with adequate PN support d/t high initiation rate delivery of concentrated formula aeb current PN infusion meets 85-101% of est caloric needs however meets 72-89% of est protein needs. Est. Needs: 1850 kcal to 2200 kcal (25-30 kcal/kgBW), 89 gms to 111 gms pro (1.2-1.5 gms/kgBW reassessed d/t severe hypoalbuminemia). Will continue to monitor pertinent labs and reassess nutrient need prn Labs: BUN 48 H, DEYANIRA/LT 66/153 H, ALB 1.7 L, GLU 144 H Skin: Kaushal scale 15, mod risk, skin intact per RN doc GI: Pt had 1 BM 03/13/19 constipated with gastric drainage of 350 ml today per oil and gas field technician. PES: Altered nutrition related lab values r/t current/chronic medical condition aeb hyperglycemia, elev. BUN, VUt B12, low Fe, TIBC and mild hypoalbuminemia Increased nutrient needs r/t acute/chronic medical condition aeb 95% IBW, BMI 22.8 kg/m2, decreased muscle mass, reported wt loss, Syncopal episodes, Sepsis, Dehydration, mild hypoalbuminemia. Will continue to monitor NPO status, PN tolerance, skin status, pertinent labs and weight trend. F/u in 2 to 3 days. Rec.: 1.) If still NPO with PN support, consider gradual increase on calories and protein to meet at least 75% of est nutrient needs. 2.) Advance gradually to oral diet when medically appropriate. 3.) Refer to RD for further nutrition education and weight monitoring upon discharged. 4.) Continue current plan of care.
--- NOTE | 2019-03-18 11:38 | NUR ---
WOUND CARE NOTE: Wound care in to see patient per wound care request regarding skin integrity issue that are noted by bedside nurse upon assessment. Bedside nurse took photograph of patient's skin issue for reference. Patient is 8 years old male with admitting diagnosis of Sepsis. He has history of A Fib, high lipids, htn. Patient is resting in bed in Rm. 298A. He's awake, alert and able to follow simple direction. Patient is in no stated pain at this time however mild pain noted upon turning. He's max assist in turning and repositioning. His Kaushal score is 13. Skin assessment done with the assistance of patient's nurse, MARSHA Harley and nurse ssn/ssbn assistant navigator. Noted patient's Lt sacrum (3x1.5cm) and Rt sacrum (1x0.5cm) has open serum filled blisters (Stage 2 pressure injuries). Wounds are red with bright and dark red, non-blanchable periwound, no drainage/odor noted. Patient states that he feel sore to his bottom. Patient's at bedside reported that patient has had issue to his sacrum "off and on". She added that patient has been sick "since last August". Cleansed patient's sacrum with mild soap and water, patted dry, applied Z Guard cream and covered wounds with Opti foam sacral dressing. Patient's BLE noted with edema. His feet and heels has blanchable redness, recommended to bedside nurse and nurse assistance of keep patient's heels offloaded on pillows. Patient and his provided with skin/wound care education. Patient's verbalized understanding. Patient tolerated well. MARSHA Harley and nurse ssn/ssbn assistant navigator at bedside. RECOMMENDATION: BID/PRN cleaning and application of Z Guard cream to sacral/buttocks per MD order, dietary consult, frequent turning and repositioning schedule as condition permits, redistribute pressure points with pillows, elevate heels on pillows, air mattress (ordered), continue monitoring by wound care while patient is hospitalized. Addendum: 03/18/19 at 1519 by Rayna Joya RN Amended: Links added.
[2019-03-18] MEDS: FLUCONAZOLE 200MG/100ML 100 ML IV SCH (12:00)
[2019-03-18] MEDS: SODIUM FERR GLUC 62.5MG/5ML 125 MG in SODIUM CHL 0.9% 100 ML IV SCH (12:00)
--- NOTE | 2019-03-18 12:00 | NUR ---
EDUCATIONAL PSYCHOLOGY TEACHER BEDSIDE The cutting machine tender helper is bedside to assess the patient.
[2019-03-18 13:00] VITALS: BP_SYST 100; BP_SYST 120; BP_DIAS 62; BP_DIAS 69
--- NOTE | 2019-03-18 13:55 | NUR ---
AIR MATTRESS: Air mattress ordered. Ref# [id number]. ETA [id number]. If needed to follow up please call [facility] at [phone]
--- NOTE | 2019-03-18 14:15 | NUR ---
BOWEL MOVEMENT The patient has a massive bowel movement. The patient's bowel movement provides dark and tarry stool. Dr. Dunn is contacted and made aware of the patient's bowel movement. An order for an occult stool is received and the patient's stool sample is sent.
[2019-03-18] MEDS ORDERED: PATIENTS OWN MEDICATION (EPOGEN 10,000 UNITS) SUBCUT ONE (16:00)
--- NOTE | 2019-03-18 16:40 | NUR ---
PHYSICIAN NOTIFIED Dr. Dunn is contacted and made aware of the patient's positive blood occult stool result. Dr. Dunn places orders via telephone with read back.
[2019-03-18] MEDS: TAMSULOSIN HYDROCHLORIDE 0.4 MG CAP PO SCH (18:38)
[2019-03-18] MEDS: IPRATROPIUM BROM 0.5 MG/2.5ML INH SOL NEB PRN (19:26)
--- NOTE | 2019-03-18 19:26 | NUR ---
Respiratory note: AT BEDSIDE FOR MED NEB TX, NG TUBE IN PLACE IN RIGHT NARE. PT TOLERATED TX VIA MASK WITHOUT ADVERSE REACTION.
[2019-03-18] MEDS ORDERED: TPN PER PHARMACY IV NR ×9 (20:00)
[2019-03-18 22:00] VITALS: BP 90/53
[2019-03-18] MEDS: ATORVASTATIN 20 MG TAB PO SCH (22:54)
[2019-03-19] VITALS (14 sets, daily range): BP systolic 97–114; BP diastolic 54–66
[2019-03-19] MEDS: ACCU-CHEK COMFORT CURVE STRIP VI SCH ×4 (01:41→18:19)
[2019-03-19] MEDS: InsuLIN REG 1unit/0.01ml Soln (100units/ml) SC SCH ×4 (01:41→18:00)
[2019-03-19] MEDS: MEROPENEM 1GM IVPB 100 ML IV SCH ×3 (01:42→18:19)
--- NOTE | 2019-03-19 06:00 | NUR ---
50ml of brown pasty drainage from accordion drain.
--- NOTE | 2019-03-19 06:00 | NUR ---
% Addendum: 03/19/19 at 0652 by ROSALINA FLORES RN error
[2019-03-19] MEDS: LEVALBUTEROL HCL 1.25 MG/3 ML NEB NEB SCH ×4 (06:27→22:00)
[2019-03-19] MEDS: IPRATROPIUM BROM 0.5 MG/2.5ML INH SOL NEB PRN ×2 (06:27→19:51)
[2019-03-19] MEDS: SUCRALFATE 1 GM TAB PO SCH ×4 (06:27→23:18)
--- NOTE | 2019-03-19 07:20 | NUR ---
Opening Shift Note Assumed care of patient, patient alert and oriented X 2. No S/S of distress/SOB or pain. Sitter at bedside.
[2019-03-19 09:03] LABS: Hematocrit 22.5 % (41.0-53.0); Mean Corpuscular Hgb Conc. 31.8 g/dL (32.0-36.0)
[2019-03-19 09:06] LABS: Hemoglobin 7.1 g/dL (13.5-17.5); Mean Corpuscular Hemoglobin 26.2 pg (28.0-32.0); Mean Corpuscular Volume 82.5 fL (80.0-100.0); Platelet Count (auto) 585 10^3/uL (140-450); Red Blood Cells 2.73 10^6/uL (4.5-5.90); White Blood Cell 14.7 10^3/uL (4.4-10.8)
[2019-03-19 09:14] LABS: Albumin 1.6 g/dL (3.4-5.0); BUN/Creatinine Ratio 76.2; Bilirubin, Total 1.1 mg/dL (0.2-1.0); Magnesium 2.3 mg/dL (1.6-2.6); Phosphorus 3.2 mg/dL (2.5-4.90); Total Protein 4.4 g/dL (6.4-8.2)
[2019-03-19 09:24] LABS: Basophils % (manual) 0 (0.0-2.0); Blast Cells 0; Metamyelocytes % 0; Promyelocytes % 0; Reactive Lymphocytes 0
[2019-03-19] MEDS: SODIUM CHLOR 0.9% PF (SALINE LOCK) 10ML VIAL/SYR IV SCH ×2 (09:40→23:18)
[2019-03-19] MEDS: PANTOPRAZOLE 40 MG/10 ML VIAL INJ IV SCH (09:40)
[2019-03-19] MEDS: GABAPENTIN 300 MG CAP PO SCH ×2 (09:40→23:18)
[2019-03-19] MEDS: ATENOLOL 25 MG TAB PO SCH (09:40)
[2019-03-19] MEDS ORDERED: VANCOMYCIN 1GM/250ML 250 ML IV SCH (10:30)
[2019-03-19] MEDS ORDERED: LIDOCAINE 2%HCL (LOCAL ANESTH.) INJ 20ML MDV ONE (11:04)
--- NOTE | 2019-03-19 11:30 | NUR ---
CT guided catheter replacement Patient off floor for ct guided catheter replacement.
--- NOTE | 2019-03-19 12:20 | NUR ---
Pt back on floor Accordion drain removed.
[2019-03-19] MEDS: FLUCONAZOLE 200MG/100ML 100 ML IV SCH (12:57)
[2019-03-19] MEDS: SODIUM FERR GLUC 62.5MG/5ML 125 MG in SODIUM CHL 0.9% 100 ML IV SCH (14:06)
[2019-03-19 14:35] LABS: Band Neutrophils % (manual) 4; Eosinophils % (manual) 3 (0-7); Lymphocytes % (manual) 4 (10.0-50.0); Monocytes % (manual) 4 (0-12); Myelocytes % 1
[2019-03-19] MEDS ORDERED: SODIUM CHLORIDE 0.9% 500 ML IV ONE (16:30)
[2019-03-19] MEDS: TAMSULOSIN HYDROCHLORIDE 0.4 MG CAP PO SCH (18:19)
--- NOTE | 2019-03-19 18:22 | NUR ---
Called blood bank Unit will not be ready for an estimated 15 more minutes.
--- NOTE | 2019-03-19 19:00 | NUR ---
1ST UNIT OF PRBCS STARTED
[2019-03-19] MEDS ORDERED: TPN PER PHARMACY IV NR ×8 (20:00)
[2019-03-19] MEDS ORDERED: VANCOMYCIN 1,250 MG in D5W 5% 250 ML IV SCH (22:00)
--- NOTE | 2019-03-19 22:25 | NUR ---
First PRBC unit transfusion complete and pt jaqueline well. No adverse reactions.
--- NOTE | 2019-03-19 22:46 | NUR ---
2200 Vancomycin dose missing. After hours pharmacy notified. Explained to him that all the refrigerators have been checked, cassette, and non-refrigerator drawers have been checked by this RN. I was instructed to keep looking that maybe med is with wrong patient cassette. Med is missing and not found. Pharmacy aware. Unable to give med.
[2019-03-19] MEDS: ATORVASTATIN 20 MG TAB PO SCH (23:18)
--- NOTE | 2019-03-19 23:30 | NUR ---
Received report from Diana GALAVIZ that pt has pulled out the NG tube.
--- NOTE | 2019-03-19 23:45 | NUR ---
Second Unit of PBRC started now.
[2019-03-20] VITALS (9 sets, daily range): BP systolic 104–130; BP diastolic 61–73
[2019-03-20] MEDS: InsuLIN REG 1unit/0.01ml Soln (100units/ml) SC SCH ×4 (00:42→18:00)
[2019-03-20] MEDS: ACCU-CHEK COMFORT CURVE STRIP VI SCH ×4 (00:44→18:13)
--- NOTE | 2019-03-20 02:15 | NUR ---
Second unit of PRBC transfusion ended. No adverse reactions noted. Pt jaqueline well.
[2019-03-20] MEDS: MEROPENEM 1GM IVPB 100 ML IV SCH ×3 (03:02→18:13)
[2019-03-20 05:58] LABS: Basophils # (auto) 0 uL; Hemoglobin 9.2 g/dL (13.5-17.5); Lymphocytes # (auto) 0.8 uL
[2019-03-20 06:00] LABS: Basophils % (auto) 0.1 % (0.0-2.0); Eosinophils # (auto) 0.5 uL; Eosinophils % (auto) 4.1 % (0.0-7.0); Hematocrit 28.4 % (41.0-53.0); Lymphocytes % (auto) 6.2 % (10.0-50.0); Mean Corpuscular Hemoglobin 27.2 pg (28.0-32.0); Mean Corpuscular Hgb Conc. 32.4 g/dL (32.0-36.0); Mean Corpuscular Volume 83.9 fL (80.0-100.0); Monocytes # (auto) 1.3 uL; Monocytes % (auto) 9.8 % (0.0-12.0); Neutrophils # (auto) 10.4 uL; Neutrophils % (auto) 79.8 % (37.0-80.0); Nucleated Red Blood Cells % 1.1 %; Platelet Count (auto) 538 10^3/uL (140-450); Red Blood Cells 3.39 10^6/uL (4.5-5.90); Red Cell Distribution Width 16.8 % (11.8-14.3); White Blood Cell 13.1 10^3/uL (4.4-10.8)
[2019-03-20] MEDS: SUCRALFATE 1 GM TAB PO SCH ×4 (06:17→22:24)
[2019-03-20 06:25] LABS: Potassium 3.9 mmol/L (3.5-5.1)
[2019-03-20 06:43] LABS: Albumin 1.5 g/dL (3.4-5.0); BUN/Creatinine Ratio 78.6; Calcium 8.7 mg/dL (8.5-10.1); Magnesium 2.3 mg/dL (1.6-2.6); Phosphorus 3.2 mg/dL (2.5-4.90); Total Protein 4.5 g/dL (6.4-8.2)
[2019-03-20] MEDS: LEVALBUTEROL HCL 1.25 MG/3 ML NEB NEB SCH ×3 (08:05→18:35)
[2019-03-20] MEDS: IPRATROPIUM BROM 0.5 MG/2.5ML INH SOL NEB PRN (08:05)
--- NOTE | 2019-03-20 08:59 | NUR ---
Opening Shift Note Assumed care of patient, patient alert and oriented X 2. No S/S of distress/SOB or pain. Sitter at bedside. Addendum: 03/20/19 at 0859 by LUPE PHAM RN Time 0720
[2019-03-20] MEDS: PANTOPRAZOLE 40 MG/10 ML VIAL INJ IV SCH (09:52)
[2019-03-20] MEDS: SODIUM CHLOR 0.9% PF (SALINE LOCK) 10ML VIAL/SYR IV SCH ×2 (09:52→22:24)
[2019-03-20] MEDS: ATENOLOL 25 MG TAB PO SCH ×4 (09:53→12:24)
[2019-03-20] MEDS: GABAPENTIN 300 MG CAP PO SCH ×2 (09:53→22:23)
--- NOTE | 2019-03-20 11:20 | NUR ---
CELSO Lilly at bedside. aware patient pulled NG tube. Patient to remain NPO except medications.
[2019-03-20] MEDS: VANCOMYCIN 1,250 MG in D5W 5% 250 ML IV SCH (11:22)
[2019-03-20] MEDS: FLUCONAZOLE 200MG/100ML 100 ML IV SCH (12:21)
--- NOTE | 2019-03-20 14:20 | NUR ---
Nutrition Follow-up Notes Wt.: 84.0 kg as of yesterday. Pt's on oxygen via nasal cannula, asleep, sitter and family members at bedside during rounds this morning. Pt had PRBC transfusion, no signs of distress noted earlier, remains NPO, currently TPN @ 79 ml/hr providing 1960 kcal, 100 gms pro, 1560 NPCs and 20% Fat. Pt with adequate PN support d/t high initiation rate delivery of concentrated formula aeb current PN infusion meets 83% to 101% of est caloric needs and meets 71% to 106% of est protein needs. Discussed with family members the importance/benefits of PN support while remains NPO r/t current medical condition and they verbalized understanding. Noted pt's to receive tonight another TPN @ 83 ml/hr providing 2132 kcal, 100 gms pro, 1050 NPCs and 15% Fat. Est. Needs based on IBW (78 kg): 1950 kcal to 2350 kcal (25-30 kcal/kgIBW), 94 gms to 140 gms pro (1.2-1.8 gms/kgBW reassessed d/t severe hypoalbuminemia). Will continue to monitor pertinent labs and reassess nutrient need prn Labs: Gluc 123 H, Cl 113 H, BUN 4 H, Cr 0.56 L, AST/ALT 50/97 H, ALP 191 H,Tpro 4.5 L, Alb 1.5 L; Prealb 11.1 H, Trig 37 wnl Skin: Kaushal scale 12, high risk, pt's right left sacrum pressure ulcers per RN doc. Pls refer to childhood teacher's notes 03/18/19 for further details re: tx plans. GI: Pt had 1 BM 03/13/19 constipated with gastric drainage of 350 ml today per car checker. PES: Altered nutrition related lab values r/t current/chronic medical condition aeb hyperglycemia, elev. BUN, Vit B12, low Fe, TIBC and mild hypoalbuminemia Increased nutrient needs r/t acute/chronic medical condition aeb 95% IBW, BMI 22.8 kg/m2, decreased muscle mass, reported wt loss, Syncopal episodes, Sepsis, Dehydration, mild hypoalbuminemia. Will continue to monitor NPO status, PN tolerance, skin status, pertinent labs and weight trend. F/u in 2 to 3 days. Rec.: 1.) If still NPO with PN support, consider gradual increase on protein to meet at least 75% of est nutrient needs. 2.) Advance gradually to oral diet when medically appropriate. 3.) Refer to RD for further nutrition education and weight monitoring upon discharged. 4.) Continue current plan of care.
[2019-03-20] MEDS: SODIUM FERR GLUC 62.5MG/5ML 125 MG in SODIUM CHL 0.9% 100 ML IV SCH (14:58)
[2019-03-20] MEDS: TAMSULOSIN HYDROCHLORIDE 0.4 MG CAP PO SCH (18:13)
--- NOTE | 2019-03-20 19:35 | NUR ---
Opening Shift Note Assumed care of patient, awake and alert, resting in bed. No S/S of distress or SOB, no pain noted or reported at this time. Respirations are even and unlabored. Updated pt. on POC and instructed to call for assistance as needed, Pt. verbalized understanding. Bed locked in lowest position, side rails up x2, call light within reach, sitter at bedside for safety. To turn patient [id number].
[2019-03-20] MEDS ORDERED: TPN PER PHARMACY IV NR ×8 (20:00)
[2019-03-20] MEDS: ATORVASTATIN 20 MG TAB PO SCH (22:23)
--- NOTE | 2019-03-21 | NUR ---
Optifoam placed: Placed new optifoam on the patient and applied barrier cream. Turned patient. No S/S of distress SOB noted. Addendum: 03/21/19 at 3730 by Charla Alarcon RN RN Wrong date: Meant for 03/22/2019 at 0000
[2019-03-21] MEDS: ACCU-CHEK COMFORT CURVE STRIP VI SCH ×4 (00:01→17:59)
[2019-03-21] MEDS: LEVALBUTEROL HCL 1.25 MG/3 ML NEB NEB SCH ×5 (00:35→22:18)
[2019-03-21] MEDS: MEROPENEM 1GM IVPB 100 ML IV SCH ×3 (01:30→17:58)
[2019-03-21 05:00] VITALS: BP 148/64
[2019-03-21] MEDS: InsuLIN REG 1unit/0.01ml Soln (100units/ml) SC SCH ×4 (05:34→17:59)
[2019-03-21] MEDS: SUCRALFATE 1 GM TAB PO SCH ×4 (06:30→21:31)
--- NOTE | 2019-03-21 07:20 | NUR ---
Opening Shift Note Assumed care of patient, awake and alert. No S/S of distress/SOB or pain. Instructed on POC and to call for assist PRN, will continue to monitor for changes Q1hr and PRN. Sitter at bedside.
[2019-03-21 07:26] LABS: Chloride 112 mmol/L (98-107); Potassium 3.9 mmol/L (3.5-5.1); Sodium 142 mmol/L (136-145)
[2019-03-21 07:33] LABS: Alanine Aminotransferase 75 U/L (16-61); Albumin 1.5 g/dL (3.4-5.0); Anion Gap 8 (5-15); Aspartate Aminotransferase 36 U/L (15-37); BUN/Creatinine Ratio 71.2; Bilirubin, Total 0.8 mg/dL (0.2-1.0); Blood Urea Nitrogen 37 mg/dL (7-18); Calcium 8.2 mg/dL (8.5-10.1); Carbon Dioxide 22 mmol/L (21-32); GFR African American 198 mL/min; GFR Non-African American 164 mL/min; Glucose 112 mg/dL (74-106)
[2019-03-21 07:35] LABS: Alkaline Phosphatase 161 U/L (45-117); Total Protein 4.3 g/dL (6.4-8.2)
[2019-03-21 08:00] VITALS: BP 115/88
[2019-03-21 09:00] VITALS: BP 115/58
[2019-03-21] MEDS: PANTOPRAZOLE 40 MG/10 ML VIAL INJ IV SCH (09:03)
[2019-03-21 09:17] LABS: Phosphorus 2.9 mg/dL (2.5-4.90)
[2019-03-21] MEDS: VANCOMYCIN 1,250 MG in D5W 5% 250 ML IV SCH (09:56)
[2019-03-21] MEDS: GABAPENTIN 300 MG CAP PO SCH ×2 (09:57→21:30)
[2019-03-21] MEDS: ATENOLOL 25 MG TAB PO SCH (09:57)
[2019-03-21] MEDS: SODIUM CHLOR 0.9% PF (SALINE LOCK) 10ML VIAL/SYR IV SCH ×2 (09:57→21:32)
[2019-03-21 10:10] LABS: Pre Albumin 10.1 mg/dL (20.0-40.0)
--- NOTE | 2019-03-21 11:00 | NUR ---
Notified Dr. Dunn Patient with more swelling in patient's upper and lower extremities. Dr. Dunn notified and order for Lasix 40 mg IV Push obtained.
[2019-03-21] MEDS ORDERED: FUROSEMIDE 40 MG/4 ML VIAL IV ONE (11:15)
[2019-03-21] MEDS: FLUCONAZOLE 200MG/100ML 100 ML IV SCH (11:58)
[2019-03-21 17:00] VITALS: BP 122/59
[2019-03-21] MEDS: TAMSULOSIN HYDROCHLORIDE 0.4 MG CAP PO SCH (17:59)
[2019-03-21] MEDS: IPRATROPIUM BROM 0.5 MG/2.5ML INH SOL NEB PRN ×2 (19:08→22:18)
[2019-03-21] MEDS ORDERED: TPN PER PHARMACY IV NR ×8 (20:00)
[2019-03-21] MEDS: ATORVASTATIN 20 MG TAB PO SCH (21:30)
[2019-03-21 22:00] VITALS: BP 112/65
[2019-03-22] VITALS (7 sets, daily range): BP systolic 104–124; BP diastolic 54–73
[2019-03-22] MEDS: ACCU-CHEK COMFORT CURVE STRIP VI SCH ×4 (00:23→17:24)
[2019-03-22] MEDS: MEROPENEM 1GM IVPB 100 ML IV SCH ×3 (01:33→17:24)
[2019-03-22] MEDS: InsuLIN REG 1unit/0.01ml Soln (100units/ml) SC SCH ×4 (06:00→17:30)
[2019-03-22 06:28] LABS: Potassium 3.5 mmol/L (3.5-5.1)
[2019-03-22] MEDS: SUCRALFATE 1 GM TAB PO SCH ×4 (06:28→22:05)
[2019-03-22 06:36] LABS: Albumin 1.5 g/dL (3.4-5.0); BUN/Creatinine Ratio 67.9; Bilirubin, Total 0.9 mg/dL (0.2-1.0); Calcium 8.2 mg/dL (8.5-10.1); Magnesium 2.2 mg/dL (1.6-2.6); Phosphorus 2.7 mg/dL (2.5-4.90); Total Protein 4.3 g/dL (6.4-8.2)
[2019-03-22] MEDS: LEVALBUTEROL HCL 1.25 MG/3 ML NEB NEB SCH ×4 (06:53→22:24)
--- NOTE | 2019-03-22 07:15 | NUR ---
Opening Shift Note Received report from Charla LARSON. Assumed care of patient, awake and more alert today. Noted uncontrollable shaking on bilateral arms. Noted with sitter at bedside. No S/S of distress/SOB or pain. Instructed on POC and to call for assist PRN, will continue to monitor for changes Q1hr and PRN.
[2019-03-22] MEDS: VANCOMYCIN 1,250 MG in D5W 5% 250 ML IV SCH (09:53)
[2019-03-22] MEDS: GABAPENTIN 300 MG CAP PO SCH ×2 (09:54→22:06)
[2019-03-22] MEDS: SODIUM CHLOR 0.9% PF (SALINE LOCK) 10ML VIAL/SYR IV SCH ×2 (09:54→22:05)
[2019-03-22] MEDS: PANTOPRAZOLE 40 MG/10 ML VIAL INJ IV SCH (09:54)
[2019-03-22] MEDS: ATENOLOL 25 MG TAB PO SCH (09:55)
[2019-03-22] MEDS: FLUCONAZOLE 200MG/100ML 100 ML IV SCH (11:12)
--- NOTE | 2019-03-22 12:36 | NUR ---
Nutrition Follow-up Notes Wt.: 100.8 kg based on bed scale as of yesterday. Noted ? 16.8 kg weight gain in spite being NPO, negative I & Os for past few days. To recheck and record in [employer] pt's current actual body weight based on bed scale, per nursing. Pt's on oxygen via nasal cannula, asleep, sitter at bedside during rounds this morning. Pt's no signs of distress noted earlier, currently on Clear Liquid diet with poor PO intake aeb 25% consumed meal on today's breakfast. Pt remains on TPN @ 79 ml/hr providing 1960 kcal, 100 gms pro, 1560 NPCs and 20% Fat. Pt with adequate PN support d/t high initiation rate delivery of concentrated formula aeb current PN infusion meets 83% to 101% of est caloric needs and meets 71% to 106% of est protein needs. Noted pt's to receive tonight another TPN @ same rate and nutrient concentration. Est. Needs based on IBW (78 kg): 1950 kcal to 2350 kcal (25-30 kcal/kgIBW), 94 gms to 140 gms pro (1.2-1.8 gms/kgBW reassessed d/t severe hypoalbuminemia). Will continue to monitor pertinent labs and reassess nutrient need prn Labs: Gluc 113 H, BUN 38 H, Cr 0.56 L, ALP 158 H, Ca 8.2 L, Tpro 4.3 L, Alb 1.5 L; Prealb 10.1 H, Trig 37 wnl Skin: Kaushal scale 12, high risk, pt's right left sacrum pressure ulcers per RN doc. Pls refer to sugar mill worker's notes 03/18/19 for further details re: tx plans. GI: Pt had 1 BM this morning per hanger off. PES: Altered nutrition related lab values r/t current/chronic medical condition aeb hyperglycemia, elev. BUN, Vit B12, low Fe, TIBC and mild hypoalbuminemia Increased nutrient needs r/t acute/chronic medical condition aeb 95% IBW, BMI 22.8 kg/m2, decreased muscle mass, reported wt loss, Syncopal episodes, Sepsis, Dehydration, mild hypoalbuminemia. Will continue to monitor PO intake, PN tolerance, skin status, pertinent labs and weight trend. F/u in 2 to 3 days. Rec.: 1.) Advance gradually oral diet when medically appropriate. 2.) Continue close supervision and feeding assistance prn with meals. 3.) If still on Clear Liquid diet, continue PN support with gradual increase on protein to meet at least 75% of est nutrient needs. 4.) Refer to RD for further nutrition education and weight monitoring upon discharged. 5.) Continue current plan of care.
--- NOTE | 2019-03-22 13:55 | NUR ---
Dr. Lilly at bedside. GI consult done. Received new verbal order, see orders.
[2019-03-22] MEDS: TAMSULOSIN HYDROCHLORIDE 0.4 MG CAP PO SCH (17:24)
--- NOTE | 2019-03-22 17:33 | NUR ---
assessment Patient will need a resumption order for Sona Prescott on discharge. Addendum: 03/22/19 at 1733 by Kassandra FRAZIER Amended: Links added.
[2019-03-22] MEDS: IPRATROPIUM BROM 0.5 MG/2.5ML INH SOL NEB PRN (18:38)
--- NOTE | 2019-03-22 19:55 | NUR ---
RECEIVED PATIENT FROM DAY SHIFT RN. PATIENT RESTING IN BED. NO S/S OF DISTRESS NOTED. DENIED PAIN FOR NOW. REPOSITIONED PATIENT. REORIENTED PATIENT TIME, PLACE AND SITUATION. POC INSTRUCTED AND ENCOURAGED PATIENT TO CALL FOR COMPUTER DESIGNER IF NEEDED. BED IN LOWEST POSITION WITH SIDE RAILS UP X 2. CALL LARSEN WITHIN REACH. ALARM ON. SITTER AT BEDSIDE FOR SAFETY. CONTINUE TO MONITOR FOR CHANGES Q1H AND PRN.
[2019-03-22] MEDS ORDERED: TPN PER PHARMACY IV NR ×10 (20:00)
[2019-03-22] MEDS: ATORVASTATIN 20 MG TAB PO SCH (22:05)
--- NOTE | 2019-03-22 22:10 | NUR ---
ORAL MEDICATION GIVEN ORDERED. WITH APPLE SAUCE. PATIENT SWALLOWED WELL NO S/S OF ASPIRATION NOTED. CONTINUE TO MONITOR.
[2019-03-23] MEDS: ACCU-CHEK COMFORT CURVE STRIP VI SCH ×5 (00:07→23:57)
--- NOTE | 2019-03-23 00:09 | NUR ---
ACCU-CHECK, BS 107. NO COVERAGE. CONTINUE TO MONITOR.
[2019-03-23] MEDS: MEROPENEM 1GM IVPB 100 ML IV SCH ×3 (02:08→17:41)
--- NOTE | 2019-03-23 02:10 | NUR ---
PATIENT SLEEPING. SITTER AT BEDSIDE FOR SAFETY. REPOSITIONED PATIENT. PATIENT TOLERATED WELL. SPECIAL MATTRESS BED IN LOWEST POSITION. ALARM ON. CALL LARSEN WITHIN REACH. CONTINUE TO MONITOR.
[2019-03-23 05:00] VITALS: BP 119/69
--- NOTE | 2019-03-23 05:10 | NUR ---
PATIENT HAD BM. CLEANED PATIENT. PARTIAL LINEN CHANGED. PATIENT TOLERATED WELL. NO S/S OF DISTRESS NOTED. CONTINUE TO MONITOR.
[2019-03-23] MEDS: InsuLIN REG 1unit/0.01ml Soln (100units/ml) SC SCH ×5 (06:00→23:57)
[2019-03-23] MEDS: SUCRALFATE 1 GM TAB PO SCH ×4 (06:25→22:02)
--- NOTE | 2019-03-23 06:26 | NUR ---
ACCU-CHECK, BS 102. NO COVERAGE. ORAL MEDICATION GIVEN ORDERED. WITH APPLE SAUCE. PATIENT SWALLOWED WELL NO S/S OF ASPIRATION NOTED. CONTINUE TO MONITOR.
[2019-03-23] MEDS: LEVALBUTEROL HCL 1.25 MG/3 ML NEB NEB SCH ×3 (06:49→19:10)
--- NOTE | 2019-03-23 07:20 | NUR ---
Opening Shift Note Assumed care of patient, awake and alert x 1-2. No S/S of distress/SOB or pain. Sitter at bedside. Instructed on POC and to call for assist PRN, will continue to monitor for changes Q1hr and PRN.
[2019-03-23 08:00] VITALS: BP 119/67
[2019-03-23 08:34] VITALS: BP 119/67
[2019-03-23] MEDS: VANCOMYCIN 1,250 MG in D5W 5% 250 ML IV SCH (09:11)
[2019-03-23] MEDS: ATENOLOL 25 MG TAB PO SCH (09:13)
[2019-03-23] MEDS: PANTOPRAZOLE 40 MG/10 ML VIAL INJ IV SCH (09:13)
[2019-03-23] MEDS: GABAPENTIN 300 MG CAP PO SCH ×2 (09:13→22:02)
[2019-03-23] MEDS: SODIUM CHLOR 0.9% PF (SALINE LOCK) 10ML VIAL/SYR IV SCH ×2 (09:14→22:02)
[2019-03-23 10:50] LABS: Albumin 1.6 g/dL (3.4-5.0); Magnesium 2.2 mg/dL (1.6-2.6); Potassium 3.8 mmol/L (3.5-5.1)
[2019-03-23 10:55] LABS: Bilirubin, Total 0.9 mg/dL (0.2-1.0); Phosphorus 2.5 mg/dL (2.5-4.90); Total Protein 4.4 g/dL (6.4-8.2)
[2019-03-23] MEDS: FLUCONAZOLE 200MG/100ML 100 ML IV SCH (11:46)
[2019-03-23 12:45] VITALS: BP 110/63
[2019-03-23 17:04] VITALS: BP 120/68
[2019-03-23] MEDS: TAMSULOSIN HYDROCHLORIDE 0.4 MG CAP PO SCH (17:41)
[2019-03-23] MEDS: IPRATROPIUM BROM 0.5 MG/2.5ML INH SOL NEB PRN (19:10)
--- NOTE | 2019-03-23 19:26 | NUR ---
RECEIVED PATIENT FROM DAY SHIFT RN. PATIENT RESTING IN BED. NO S/S OF DISTRESS NOTED. DENIED PAIN FOR NOW. RT AT BEDSIDE FOR BREATHING TREATMENT. REORIENTED PATIENT TIME, PLACE AND SITUATION. POC INSTRUCTED AND ENCOURAGED PATIENT TO CALL FOR [employer] INSTRUMENT REPAIR TECHNICIAN IF NEEDED. BED IN LOWEST POSITION WITH SIDE RAILS UP X 2. CALL LARSEN WITHIN REACH. ALARM ON. SITTER AT BEDSIDE FOR SAFETY. CONTINUE TO MONITOR FOR CHANGES Q1H AND PRN.
[2019-03-23] MEDS ORDERED: TPN PER PHARMACY IV NR ×10 (20:00)
[2019-03-23 22:00] VITALS: BP 109/61
[2019-03-23] MEDS: ATORVASTATIN 20 MG TAB PO SCH (22:02)
--- NOTE | 2019-03-23 22:15 | NUR ---
ORAL MEDICATION GIVEN ORDERED. WITH APPLE SAUCE. PATIENT SWALLOWED WELL NO S/S OF ASPIRATION NOTED. CONTINUE TO MONITOR.
[2019-03-24] MEDS: LEVALBUTEROL HCL 1.25 MG/3 ML NEB NEB SCH ×5 (00:07→22:36)
--- NOTE | 2019-03-24 00:08 | NUR ---
ACCU-CHECK, BS 104. NO COVERAGE. CONTINUE TO MONITOR.
[2019-03-24] MEDS: MEROPENEM 1GM IVPB 100 ML IV SCH ×3 (01:52→18:00)
--- NOTE | 2019-03-24 02:46 | NUR ---
REPOSITIONED PATIENT. PATIENT TOLERATED WELL. SITTER AT BEDSIDE FOR SAFETY. CONTINUE CARE.
[2019-03-24 06:00] VITALS: BP 111/65
[2019-03-24] MEDS: InsuLIN REG 1unit/0.01ml Soln (100units/ml) SC SCH ×2 (06:00→11:37)
[2019-03-24] MEDS: ACCU-CHEK COMFORT CURVE STRIP VI SCH ×2 (06:14→11:37)
[2019-03-24] MEDS: SUCRALFATE 1 GM TAB PO SCH ×4 (06:15→22:13)
--- NOTE | 2019-03-24 06:23 | NUR ---
ACCU-CHECK, BS 96. NO COVERAGE. ORAL MEDICATION GIVEN ORDERED. WITH APPLE SAUCE. PATIENT SWALLOWED WELL NO S/S OF ASPIRATION NOTED. CONTINUE TO MONITOR.
--- NOTE | 2019-03-24 06:43 | NUR ---
MATT BLOOD FROM PICC LINE. PATIENT TOLERATED WELL. NO S/S OF DISTRESS NOTED. CONTINUE TO MONITOR.
--- NOTE | 2019-03-24 07:45 | NUR ---
OPENING NOTES ASSUMED CARE OF PATIENT. PATIENT ALERT TO SELF. NO SIGNS OF SOB/DISTRESS NOTED. BED SET TO LOWEST POSITION/LOCKED, BEDSIDE RAIL UP X2, CALL LIGHT WITHIN REACH, SITTER AT BEDSIDE. WILL CONTINUE TO MONITOR Q 1HR AND PRN.
[2019-03-24 08:07] LABS: Hemoglobin 9.1 g/dL (13.5-17.5); Lymphocytes # (auto) 0.9 uL; Monocytes # (auto) 1.1 uL; Neutrophils # (auto) 5.2 uL; Red Blood Cells 3.27 10^6/uL (4.5-5.90)
[2019-03-24 08:11] LABS: Basophils # (auto) 0 uL; Basophils % (auto) 0.5 % (0.0-2.0); Eosinophils # (auto) 0.4 uL; Eosinophils % (auto) 4.6 % (0.0-7.0); Hematocrit 27.6 % (41.0-53.0); Mean Corpuscular Hemoglobin 27.8 pg (28.0-32.0); Mean Corpuscular Volume 84.3 fL (80.0-100.0); Neutrophils % (auto) 67.9 % (37.0-80.0); Red Cell Distribution Width 18.3 % (11.8-14.3); White Blood Cell 7.6 10^3/uL (4.4-10.8)
[2019-03-24 08:22] LABS: Albumin 1.6 g/dL (3.4-5.0); Anion Gap 10 (5-15); BUN/Creatinine Ratio 46.2; Blood Urea Nitrogen 24 mg/dL (7-18); Calcium 7.8 mg/dL (8.5-10.1); Carbon Dioxide 25 mmol/L (21-32); Chloride 106 mmol/L (98-107); GFR African American 198 mL/min; GFR Non-African American 164 mL/min; Glucose 75 mg/dL (74-106); Magnesium 2.3 mg/dL (1.6-2.6); Platelet Count (auto) 507 10^3/uL (140-450); Potassium 3.8 mmol/L (3.5-5.1); Sodium 141 mmol/L (136-145)
[2019-03-24 08:25] LABS: Alanine Aminotransferase 54 U/L (16-61); Alkaline Phosphatase 156 U/L (45-117); Aspartate Aminotransferase 34 U/L (15-37); Bilirubin, Total 0.9 mg/dL (0.2-1.0); Phosphorus 2.4 mg/dL (2.5-4.90); Total Protein 4.7 g/dL (6.4-8.2)
[2019-03-24 08:28] LABS: Pre Albumin 10.6 mg/dL (20.0-40.0)
[2019-03-24 09:18] VITALS: BP 107/62
[2019-03-24] MEDS: ATENOLOL 25 MG TAB PO SCH (10:00)
[2019-03-24] MEDS: PANTOPRAZOLE 40 MG/10 ML VIAL INJ IV SCH (10:00)
[2019-03-24] MEDS: SODIUM CHLOR 0.9% PF (SALINE LOCK) 10ML VIAL/SYR IV SCH ×2 (10:00→22:13)
--- NOTE | 2019-03-24 11:34 | NUR ---
Nutrition Follow-up Notes Wt.: 100.8 k Pt's asleep, no family at bedside during rounds this morning. Pt's no signs of distress noted earlier, currently on 2 gm na diet with poor PO of < 50% x 4 per RN doc. Pt remains on TPN @ 79 ml/hr providing 1960 kcal, 100 gms pro, 1560 NPCs and 20% Fat. Pt with adequate PN support d/t high initiation rate delivery of concentrated formula aeb current PN infusion meets 83% to 101% of est caloric needs and meets 71% to 106% of est protein needs. Est. Needs based on IBW (78 kg): 1950 kcal to 2350 kcal (25-30 kcal/kgIBW), 94 gms to 140 gms pro (1.2-1.8 gms/kgBW reassessed d/t severe hypoalbuminemia). Will continue to monitor pertinent labs and reassess nutrient need prn Labs: BUN 24 H, PREALB 10.6 L, ALB 1.6 L, CA 7.8 L. Skin: Kaushal scale 14, mod risk, pt's right left sacrum pressure ulcers per RN doc. Pls refer to metal furniture panel coverer's notes for further details re: tx plans. GI: Pt had 2 BM yesterday per navigation teacher. PES: Altered nutrition related lab values r/t current/chronic medical condition aeb hyperglycemia, elev. BUN, Vit B12, low Fe, TIBC and mild hypoalbuminemia Increased nutrient needs r/t acute/chronic medical condition aeb 95% IBW, BMI 22.8 kg/m2, decreased muscle mass, reported wt loss, Syncopal episodes, Sepsis, Dehydration, mild hypoalbuminemia. Will continue to monitor PO intake, PN tolerance, skin status, pertinent labs and weight trend. F/u in 2 to 3 days. Rec.: 1.) Consider ensure Enlive 1 carton bid as PO is low. 2.) Continue close supervision and feeding assistance prn with meals. 3.) If still on Clear Liquid diet, continue PN support with gradual increase on protein to meet at least 75% of est nutrient needs. 4.) Refer to RD for further nutrition education and weight monitoring upon discharged. 5.) Continue current plan of care.
[2019-03-24] MEDS: VANCOMYCIN 1,250 MG in D5W 5% 250 ML IV SCH (11:35)
[2019-03-24] MEDS: GABAPENTIN 300 MG CAP PO SCH ×2 (11:36→22:13)
[2019-03-24] MEDS: FLUCONAZOLE 200MG/100ML 100 ML IV SCH (12:26)
[2019-03-24 14:00] VITALS: BP 102/63
[2019-03-24 17:21] VITALS: BP 113/58
[2019-03-24] MEDS: TAMSULOSIN HYDROCHLORIDE 0.4 MG CAP PO SCH (18:00)
[2019-03-24] MEDS: IPRATROPIUM BROM 0.5 MG/2.5ML INH SOL NEB PRN (18:55)
--- NOTE | 2019-03-24 18:55 | NUR ---
Respiratory note: at bedside for med savanah ramirez.
[2019-03-24 19:30] LABS: Nucleated Red Blood Cells % 0.3 %
--- NOTE | 2019-03-24 19:45 | NUR ---
RECEIVED PATIENT FROM DAY SHIFT RN. PATIENT RESTING IN BED. NO S/S OF DISTRESS NOTED. DENIED PAIN FOR NOW. REPOSITIONED PATIENT. PATIENT TOLERATED WELL. REORIENTED PATIENT TIME, PLACE AND SITUATION. POC INSTRUCTED AND ENCOURAGED PATIENT TO CALL FOR SENIOR BUSINESS BROKER IF NEEDED. BED IN LOWEST POSITION WITH SIDE RAILS UP X 2. CALL LARSEN WITHIN REACH. ALARM ON. SITTER AT BEDSIDE FOR SAFETY. CONTINUE TO MONITOR FOR CHANGES Q1H AND PRN.
[2019-03-24] MEDS ORDERED: TPN PER PHARMACY IV NR ×10 (20:00)
[2019-03-24 21:30] VITALS: BP 106/60
[2019-03-24] MEDS: ATORVASTATIN 20 MG TAB PO SCH (22:13)
--- NOTE | 2019-03-24 22:20 | NUR ---
ORAL MEDICATION GIVEN ORDERED. WITH APPLE SAUCE. PATIENT SWALLOWED WELL NO S/S OF ASPIRATION NOTED. CONTINUE TO MONITOR.
--- NOTE | 2019-03-25 01:18 | NUR ---
CLEANED PATIENT. PARTIAL LINEN CHANGED. PATIENT TOLERATED WELL. CONTINUE CARE.
[2019-03-25] MEDS: MEROPENEM 1GM IVPB 100 ML IV SCH ×2 (02:00→09:40)
--- NOTE | 2019-03-25 04:18 | NUR ---
PATIENT SLEEPING. NO S/S OF DISTRESS NOTED. CONTINUE CARE.
[2019-03-25 05:00] VITALS: BP 111/73
[2019-03-25] MEDS: LEVALBUTEROL HCL 1.25 MG/3 ML NEB NEB SCH ×4 (05:58→22:00)
[2019-03-25] MEDS: IPRATROPIUM BROM 0.5 MG/2.5ML INH SOL NEB PRN ×3 (05:58→19:10)
[2019-03-25] MEDS: SUCRALFATE 1 GM TAB PO SCH ×4 (06:53→21:58)
--- NOTE | 2019-03-25 06:54 | NUR ---
ORAL MEDICATION GIVEN ORDERED. WITH APPLE SAUCE. PATIENT SWALLOWED WELL NO S/S OF ASPIRATION NOTED.
[2019-03-25 07:33] LABS: Basophils # (auto) 0.1 uL; Eosinophils # (auto) 0.3 uL; Hematocrit 27.6 % (41.0-53.0); Lymphocytes # (auto) 0.9 uL; Monocytes # (auto) 0.9 uL; Red Cell Distribution Width 18.2 % (11.8-14.3)
[2019-03-25 07:34] LABS: Eosinophils % (auto) 4.6 % (0.0-7.0); Hemoglobin 9.2 g/dL (13.5-17.5); Lymphocytes % (auto) 14.5 % (10.0-50.0); Mean Corpuscular Hemoglobin 28.1 pg (28.0-32.0); Mean Corpuscular Hgb Conc. 33.5 g/dL (32.0-36.0); Mean Corpuscular Volume 83.8 fL (80.0-100.0); Monocytes % (auto) 14.8 % (0.0-12.0); Neutrophils # (auto) 4.1 uL; Neutrophils % (auto) 64.1 % (37.0-80.0); Red Blood Cells 3.29 10^6/uL (4.5-5.90); White Blood Cell 6.4 10^3/uL (4.4-10.8)
[2019-03-25 07:40] LABS: Platelet Count (auto) 497 10^3/uL (140-450)
--- NOTE | 2019-03-25 07:40 | NUR ---
OPENING NOTES ASSUMED CARE OF PATIENT. AWAKE AND ALERT. NO SIGNS OF SOB/DISTRESS NOTED. BED SET TO LOWEST POSITION/LOCKED, BEDSIDE RAIL UP X2, CALL LIGHT WITHIN REACH, SITTER AT BEDSIDE. WILL CONTINUE TO MONITOR Q1HR AND PRN.
[2019-03-25 07:44] LABS: Anion Gap 10 (5-15); Blood Urea Nitrogen 22 mg/dL (7-18); Calcium 7.7 mg/dL (8.5-10.1); Carbon Dioxide 24 mmol/L (21-32); Chloride 108 mmol/L (98-107); GFR African American 186 mL/min; GFR Non-African American 154 mL/min; Glucose 67 mg/dL (74-106); Potassium 3.9 mmol/L (3.5-5.1); Sodium 142 mmol/L (136-145)
[2019-03-25 08:00] VITALS: BP 99/58
[2019-03-25] MEDS: VANCOMYCIN 1,250 MG in D5W 5% 250 ML IV SCH (09:40)
[2019-03-25] MEDS: GABAPENTIN 300 MG CAP PO SCH ×2 (09:41→21:58)
[2019-03-25] MEDS: PANTOPRAZOLE 40 MG/10 ML VIAL INJ IV SCH (09:41)
[2019-03-25] MEDS: SODIUM CHLOR 0.9% PF (SALINE LOCK) 10ML VIAL/SYR IV SCH ×2 (09:41→21:58)
[2019-03-25 12:00] VITALS: BP 112/55
[2019-03-25] MEDS ORDERED: PANTOPRAZOLE 40 MG TAB PO ONE (12:00)
[2019-03-25] MEDS ORDERED: FLUCONAZOLE 100 MG TAB PO ONE (12:00)
[2019-03-25] MEDS: Ensure HIGH Protein Chocolate 8oz Bottle PO SCH ×2 (12:10→18:11)
[2019-03-25] MEDS ORDERED: LEVOFLOXACIN 500 MG TAB PO ONE (12:15)
[2019-03-25 14:26] VITALS: BP 112/55
[2019-03-25 17:30] VITALS: BP 113/71
[2019-03-25] MEDS: TAMSULOSIN HYDROCHLORIDE 0.4 MG CAP PO SCH (18:18)
--- NOTE | 2019-03-25 19:10 | NUR ---
Respiratory note: AT BEDSIDE FOR MED NEB TX PT REFUSING AT THIS TIME HE STATES HE DOES NOT NEED THEM ANYMORE, BS ARE DIMINISHED T/O, POX 94% ON RA, HR 90, RR18, RT NAME AND PAGER ASSIGNMENT WRITTEN ON PTS ROOM BOARD, WILL CONTINUE TO MONITOR.
--- NOTE | 2019-03-25 19:17 | NUR ---
ENDORSED CARE TO MARSHA BEASLEY.
--- NOTE | 2019-03-25 19:49 | NUR ---
RECEIVED PATIENT FROM DAY SHIFT RN. PATIENT RESTING IN BED. NO S/S OF DISTRESS NOTED. DENIED PAIN FOR NOW. REPOSITIONED PATIENT. PATIENT TOLERATED WELL. REORIENTED PATIENT. POC INSTRUCTED AND ENCOURAGED PATIENT TO CALL FOR MANAGER LPN IF NEEDED. BED IN LOWEST POSITION WITH SIDE RAILS UP X 2. CALL LARSEN WITHIN REACH. ALARM ON. SITTER AT BEDSIDE FOR SAFETY. CONTINUE TO MONITOR FOR CHANGES Q1H AND PRN.
[2019-03-25] MEDS: ATORVASTATIN 20 MG TAB PO SCH (21:58)
[2019-03-25 22:00] VITALS: BP 126/71
--- NOTE | 2019-03-25 22:02 | NUR ---
ORAL MEDICATION GIVEN ORDERED. WITH APPLE SAUCE. PATIENT SWALLOWED WELL NO S/S OF ASPIRATION NOTED. CONTINUE TO MONITOR.
--- NOTE | 2019-03-25 22:50 | NUR ---
Respiratory note: AT BEDSIDE PT REFUSING MED NEB TX AGAIN STATES HE IS BETTER NOW AND DOES NOT WANT ONE. WILL CONTINUE TO MONITOR.
--- NOTE | 2019-03-26 02:32 | NUR ---
PATIENT SLEEPING. NO S/S OF DISTRESS NOTED. CONTINUE CARE.
[2019-03-26 05:00] VITALS: BP 116/63
[2019-03-26] MEDS: SUCRALFATE 1 GM TAB PO SCH ×2 (06:32→10:22)
--- NOTE | 2019-03-26 06:32 | NUR ---
ORAL MEDICATION GIVEN ORDERED. WITH APPLE SAUCE. PATIENT SWALLOWED WELL NO S/S OF ASPIRATION NOTED. CONTINUE TO MONITOR.
[2019-03-26] MEDS: IPRATROPIUM BROM 0.5 MG/2.5ML INH SOL NEB PRN (07:36)
[2019-03-26] MEDS: LEVALBUTEROL HCL 1.25 MG/3 ML NEB NEB SCH ×2 (07:36→11:14)
[2019-03-26] MEDS: Ensure HIGH Protein Chocolate 8oz Bottle PO SCH ×2 (08:00→12:25)
--- NOTE | 2019-03-26 08:03 | NUR ---
Per consult for SNF placement. Information and choice letter was given to Pt . Per Fence Setter Kassandra spoke to Pt Anjali about placement and Pt Anjali requested [facility]. Contacted [facility] Ph: ( [phone]) Fax: ( [phone]) faxed medical records. Per Nayeli from [facility] Pt has been accepted to room 22a accepting MD Dr. Jolly. Per Alex from [facility] they will set up transportation upon d/. Addendum: 03/26/19 at 0811 by PEARL RAGSDALE Amended: Links added. Addendum: 03/26/19 at 1649 by PEARL RAGSDALE Contacted Liya from [facility] to set up transportation. Per Liya [place] transportation Ph: ) will orange picker Pt at 16:45. Informed RN Donita.
[2019-03-26 09:34] LABS: Basophils # (auto) 0.1 uL; Eosinophils # (auto) 0.2 uL; Lymphocytes # (auto) 0.9 uL; Neutrophils # (auto) 3.5 uL
[2019-03-26 09:35] LABS: Basophils % (auto) 1.8 % (0.0-2.0); Eosinophils % (auto) 3.1 % (0.0-7.0); Hematocrit 30.3 % (41.0-53.0); Hemoglobin 9.8 g/dL (13.5-17.5); Lymphocytes % (auto) 16.8 % (10.0-50.0); Mean Corpuscular Hemoglobin 27.5 pg (28.0-32.0); Mean Corpuscular Hgb Conc. 32.2 g/dL (32.0-36.0); Mean Corpuscular Volume 85.6 fL (80.0-100.0); Monocytes # (auto) 0.8 uL; Monocytes % (auto) 14.2 % (0.0-12.0); Neutrophils % (auto) 64.1 % (37.0-80.0); Nucleated Red Blood Cells % 0.1 %; Red Blood Cells 3.54 10^6/uL (4.5-5.90); Red Cell Distribution Width 18.5 % (11.8-14.3); White Blood Cell 5.4 10^3/uL (4.4-10.8)
[2019-03-26 09:38] LABS: Platelet Count (auto) 475 10^3/uL (140-450)
[2019-03-26 09:53] LABS: BUN/Creatinine Ratio 32.4; Calcium 8.4 mg/dL (8.5-10.1); Potassium 3.7 mmol/L (3.5-5.1)
[2019-03-26] MEDS ORDERED: LEVOFLOXACIN 500 MG TAB PO SCH (10:00)
[2019-03-26] MEDS ORDERED: FLUCONAZOLE 100 MG TAB PO SCH (10:00)
[2019-03-26] MEDS ORDERED: PANTOPRAZOLE 40 MG TAB PO SCH (10:00)
[2019-03-26] MEDS: VANCOMYCIN 1,250 MG in D5W 5% 250 ML IV SCH (10:20)
[2019-03-26] MEDS: SODIUM CHLOR 0.9% PF (SALINE LOCK) 10ML VIAL/SYR IV SCH (10:21)
[2019-03-26] MEDS: GABAPENTIN 300 MG CAP PO SCH (10:21)
--- NOTE | 2019-03-26 11:54 | NUR ---
Nutrition Follow-up Notes Wt.: 100.8 k Pt's asleep, no family at bedside during rounds this morning. Pt's no signs of distress noted earlier, currently on 2 gm na diet with poor PO of < 50% x 2 days along with ensure HP 1 carton TID per RN doc. pt is now off PN support Est. Needs based on IBW (78 kg): 1950 kcal to 2350 kcal (25-30 kcal/kgIBW), 94 gms to 140 gms pro (1.2-1.8 gms/kgBW reassessed d/t severe hypoalbuminemia). Will continue to monitor pertinent labs and reassess nutrient need prn Labs: BUN 22 H, ALB 1.6 L, CA 7.7 L. Skin: Kaushal scale 14, mod risk, pt's right left sacrum pressure ulcers per RN doc. Pls refer to perinatal coordinator's notes for further details re: tx plans. GI: Pt had 1 BM today per ward nurse. PES: Altered nutrition related lab values r/t current/chronic medical condition aeb hyperglycemia, elev. BUN, Vit B12, low Fe, TIBC and mild hypoalbuminemia Increased nutrient needs r/t acute/chronic medical condition aeb 95% IBW, BMI 22.8 kg/m2, decreased muscle mass, reported wt loss, Syncopal episodes, Sepsis, Dehydration, mild hypoalbuminemia. Will continue to monitor PO intake, skin status, pertinent labs and weight trend. F/u in 3-5 days. Rec.: 1.) Continue close supervision and feeding assistance prn with meals. 2.) Resume PN support if PO continues to be low. 3.) Refer to RD for further nutrition education and weight monitoring upon discharged. 4.) Continue current plan of care.
[2019-03-26 14:40] VITALS: BP 112/69
[2019-03-26 14:50] VITALS: BP 119/67
--- NOTE | 2019-03-26 15:27 | NUR ---
Discharge instructions given as ordered. Patient is to follow-up with Dr. Jolly at [facility]. All questions and concerns addressed with patient and . Patient and verbalized understanding. PICC removed with catheter intact, pressure dressing applied. Medication reconciliation form completed and copy given to patient.
--- NOTE | 2019-03-26 16:44 | NUR ---
Patient transported by [facility] with all personal belongings. No distress noted at time of departure.
--- NOTE | 2019-03-26 17:43 | NUR ---
GAVE REPORT TO LENIN FROM [facility].
== END 2019-03-26 16:49 | DRG 871 ==
LOC: EDBD 20:04 → EDUNIT# 20:04 → ER 20:07 → TELE 20:08 → TELE-WESTW 03-06 03:35 → WEST WING 03-25 13:10
PROVIDERS: ADMIT Nurse Practitioner Family; ATTEND Internal Medicine
PROC: 30233N1 Transfusion of Nonautologous Red Blood Cells into Peripheral Vein, Percutaneous Approach (ICD-10-PCS; 2019-03-06)
PROC: 0DB78ZX Excision of Stomach, Pylorus, Via Natural or Artificial Opening Endoscopic, Diagnostic (ICD-10-PCS; 2019-03-08)
PROC: 02HV33Z Insertion of Infusion Device into Superior Vena Cava, Percutaneous Approach (ICD-10-PCS; principal; 2019-03-13)
PROC: 0W9G30Z Drainage of Peritoneal Cavity with Drainage Device, Percutaneous Approach (ICD-10-PCS; 2019-03-17)
PROC: 0D9670Z Drainage of Stomach with Drainage Device, Via Natural or Artificial Opening (ICD-10-PCS; 2019-03-17)
DX: A41.9 Sepsis, unspecified organism (principal); K29.71 Gastritis, unspecified, with bleeding; K25.4 Chronic or unspecified gastric ulcer with hemorrhage; K85.90 Acute pancreatitis without necrosis or infection, unspecified; K26.4 Chronic or unspecified duodenal ulcer with hemorrhage; N17.9 Acute kidney failure, unspecified; N39.0 Urinary tract infection, site not specified; E87.2 Acidosis; E44.0 Moderate protein-calorie malnutrition; I31.3 Pericardial effusion (noninflammatory); J90 Pleural effusion, not elsewhere classified; J98.11 Atelectasis; K56.600 Partial intestinal obstruction, unspecified as to cause; N20.1 Calculus of ureter; R18.8 Other ascites; I10 Essential (primary) hypertension; K21.9 Gastro-esophageal reflux disease without esophagitis; E78.5 Hyperlipidemia, unspecified; Z95.5 Presence of coronary angioplasty implant and graft; D50.9 Iron deficiency anemia, unspecified; E86.0 Dehydration; B02.9 Zoster without complications; K44.9 Diaphragmatic hernia without obstruction or gangrene; G51.32 Clonic hemifacial spasm, left; I48.91 Unspecified atrial fibrillation; F02.80 Dementia in other diseases classified elsewhere, unspecified severity, without behavioral disturbance, psychotic disturbance, mood disturbance, and anxiety; E78.00 Pure hypercholesterolemia, unspecified; I25.10 Atherosclerotic heart disease of native coronary artery without angina pectoris; I34.0 Nonrheumatic mitral (valve) insufficiency; I77.810 Thoracic aortic ectasia; K29.70 Gastritis, unspecified, without bleeding; Z96.651 Presence of right artificial knee joint; G30.9 Alzheimer's disease, unspecified; K74.60 Unspecified cirrhosis of liver; K29.80 Duodenitis without bleeding; Z68.29 Body mass index [BMI] 29.0-29.9, adult; Z79.01 Long term (current) use of anticoagulants; Z80.3 Family history of malignant neoplasm of breast; Z79.899 Other long term (current) drug therapy; Z82.49 Family history of ischemic heart disease and other diseases of the circulatory system; Z83.3 Family history of diabetes mellitus; Z86.79 Personal history of other diseases of the circulatory system; Z90.411 Acquired partial absence of pancreas; Z90.81 Acquired absence of spleen
CPT/HCPCS: 10022; 36415; 36430; 36569; 36600; 43239; 51702; 70450; 70551; 71045; 74018; 74150; 74177; 74250; 76705; 77012; 78582; 80048; 80053; 80202; 81001; 82040; 82270; 82607; 82728; 82746; 82805; 82962; 83010; 83540; 83550; 83605; 83735; 84100; 84478; 85007; 85025; 85027; 85045; 85379; 85610; 85730; 86850; 86880; 86900; 86901; 86920; 87040; 87086; 93005; 93886; 93970; 93971; 94640; 96361; 96365; 96366; 96368; 97163; C1729; G0378; J0696; J1450; J1815; J2001; J2185; J2250; J2405; J2543; J7060; J7131

== ENCOUNTER 2019-04-02 07:32 | Emergency (ER) | payer MEDICARE ==
[~2019-04-02] VITALS: Ht 180.3 cm; Wt 97.1 kg
[~2019-04-02 07:32] MED LIST changes: +ATOR20TA PO; +LEVA1NEB5 IN; +MED20T PO; -PRAS10TA PO; -SUCR1TAB38 PO; +TAM04C PO
[2019-04-02] MEDS ORDERED: SODIUM BICARBONATE 8.4% INJ 50ML SYRINGE IV ONE (07:33)
== END 2019-04-02 11:16 | disposition expired ==
LOC: ER 07:32 → EDBD 07:32 → ER 11:16
DX: I46.9 Cardiac arrest, cause unspecified (principal); I48.91 Unspecified atrial fibrillation; J44.9 Chronic obstructive pulmonary disease, unspecified; K21.9 Gastro-esophageal reflux disease without esophagitis; E78.5 Hyperlipidemia, unspecified; I10 Essential (primary) hypertension; Z79.899 Other long term (current) drug therapy
CPT/HCPCS: 92950